=== PATIENT | male | born 1945 | race Caucasian/White ===

== ENCOUNTER 2019-06-04 08:37 | Emergency (ER) | payer OTHER, MEDICARE, BC ==
[2019-06-04 09:25] VITALS: BP 118/95; PULSE 81
[2019-06-04] MEDS ORDERED: Sodium Chloride 0.9% 10 ML Syringe FLUSH PRN (09:44)
[2019-06-04] MEDS ORDERED: Ondansetron 4 MG/2 ML SDV IVPUSH ONE (09:44)
[2019-06-04] MEDS ORDERED: HYDROmorphone 0.5 MG/0.5 ML Syringe IVPUSH ONE (09:44)
[2019-06-04] MEDS ORDERED: Sodium Chloride 0.9% 1,000 ML IV SCH (09:45)
[2019-06-04] MEDS ORDERED: Ketorolac 30 MG/ML SDV IVPUSH SCH (09:45)
--- NOTE | 2019-06-04 11:27 | EDM.PDOC ---
ED HPI GENERAL MEDICAL PROBLEM - General Chief Complaint: Gastrointestinal Problem Stated Complaint: CONSTIPATION Time Seen by Provider: 06/04/19 09:32 Source of Information: Reports: Patient, Family (spouse), RN Notes Reviewed - History of Present Illness INITIAL COMMENTS - FREE TEXT/NARRATIVE: 74 year old male comes in with abd discomfort, constipation difficulty. He had L "ankle replacement surgery" 6 days ago. He has been taking a lot of hydrocodone for pain. With that he feels that he has been much more constipated than usual. Has been taking metamucil, some other meds but has poor appetite, has not had a good BM for several days. He is passing some gas and did have a small BM earlier today, feels better now than he did before that. No vomiting. No fever or chills. Abdominal Pain Score (Numeric/FACES): 8 - Related Data Allergies Allergy/AdvReac Type Severity Reaction Status Date / Time No Known Allergies Allergy Verified 04/01/16 12:47 Home Meds: Home Meds Cyclobenzaprine [Flexeril] 10 mg PO DAILY 02/29/16 [History] Omeprazole 20 mg PO BEDTIME 02/29/16 [History] Past Medical History - Past Health History Medical/Surgical History: Denies Medical/Surgical History HEENT History: Reports: Hard of Hearing, Impaired Vision Other HEENT History: otitis externa, serous otitis medica, hearing aids, glasses Gastrointestinal History: Reports: Bowel Obstruction Musculoskeletal History: Reports: Other (See Below) Other Musculoskeletal History: Takes Flexeril at since got [place] in 2006 Neurological History: Reports: Other (See Below) Other Neuro History: Back pain after [place] - Infectious Disease History Infectious Disease History: Reports: Chicken Pox, Measles - Past Surgical History GI Surgical History: Reports: Colonoscopy, EGD, Polypectomy, Other (See Below) Other GI Surgeries/Procedures: PT had bowel resection in 2016 Neurological Surgical History: Reports: Other (See Below) Musculoskeletal Surgical History: Reports: Other (See Below) Other Musculoskeletal Surgeries/Procedures:: Ankle surgery 05/30/2019 Dermatological Surgical History: Reports: Other (See Below) Social & Family History - Family History GI: Reports: Diverticulitis, Diverticulosis Other GI Family History: both brother and nephew passed from GI issues. Musculoskeletal: Reports: Other (See Below) Other Musculoskeletal Family History: ataxia Neurological: Reports: Parkinson's Oncologic: Reports: Colon, Lung, Pancreatic - Tobacco Use Smoking Status *Q: Never Smoker Second Hand Smoke Exposure: No - Caffeine Use Caffeine Use: Reports: Coffee - Recreational Drug Use Recreational Drug Use: No ED ROS GENERAL - Review of Systems Review Of Systems: See Below Constitutional: Denies: Fever, Chills, Diaphoresis HEENT: Reports: No Symptoms Respiratory: Denies: Shortness of Breath Cardiovascular: Denies: Chest Pain GI/Abdominal: Reports: Abdominal Pain (mild intermitant achiness), Constipation , Decreased Appetite. Denies: Hematemesis, Hematochezia, Nausea, Vomiting Musculoskeletal: Reports: Joint Pain (L ankle). Denies: Back Pain Skin: Reports: No Symptoms Neurological: Reports: No Symptoms ED EXAM, GI/ABD - Physical Exam Exam: See Below General Appearance: Alert, No Apparent Distress Eyes: Bilateral: Normal Appearance Nose: Normal Inspection Throat/Mouth: Normal Inspection, Normal Oropharynx Head: Atraumatic Neck: Supple Respiratory/Chest: No Respiratory Distress, Lungs Clear, Normal Breath Sounds Cardiovascular: Regular Rate, Rhythm GI/Abdominal Exam: Soft, Non-Tender. No: Guarding, Rebound Rectal (Males) Exam: Other (very small amt of soft brown stool in rectum, no mass or unusual tenderness, heme neg. ) Back Exam: No: CVA Tenderness (L), CVA Tenderness (R) Neurological: Alert, Oriented, No Motor/Sensory Deficits Skin Exam: Warm, Dry, Normal Color Course - Vital Signs Last Recorded V/S: Last Vital Signs Temp 97.5 F 06/04/19 09:22 Pulse 81 06/04/19 09:22 Resp 18 06/04/19 09:22 BP 118/95 H 06/04/19 09:22 Pulse Ox 97 06/04/19 09:22 - Orders/Labs/Meds Labs: Laboratory Tests 06/04/19 06/04/19 Range/Units 10:20 10:20 WBC 6.50 (4.23-9.07) K/mm3 RBC 5.16 (4.63-6.08) M/mm3 Hgb 15.1 D (13.7-17.5) gm/dl Hct 44.1 (40.1-51.0) % MCV 85.5 (79.0-92.2) fl MCH 29.3 (25.7-32.2) pg MCHC 34.2 (32.2-35.5) g/dl RDW Std Deviation 39.3 (35.1-43.9) fL Plt Count 248 D (163-337) K/mm3 MPV 11.1 (9.4-12.3) fl Neut % (Auto) 83.6 H (34.0-67.9) % Lymph % (Auto) 11.2 L (21.8-53.1) % [place] % (Auto) 4.6 L (5.3-12.2) % Eos % (Auto) 0.2 L (0.8-7.0) Baso % (Auto) 0.2 (0.1-1.2) % Neut # (Auto) 5.44 H (1.78-5.38) K/mm3 Lymph # (Auto) 0.73 L (1.32-3.57) K/mm3 [place] # (Auto) 0.30 (0.30-0.82) K/mm3 Eos # (Auto) 0.01 L (0.04-0.54) K/mm3 Baso # (Auto) 0.01 (0.01-0.08) K/mm3 Sodium 139 (136-145) mEq/L Potassium 4.4 (3.5-5.1) mEq/L Chloride 105 (98-107) mEq/L Carbon Dioxide 22 (21-32) mEq/L Anion Gap 16.4 H (5-15) BUN 16 (7-18) mg/dL Creatinine 1.3 (0.7-1.3) mg/dL Est Cr Clr Drug Dosing 51.36 mL/min Estimated GFR (MDRD) 54 (>60) mL/min BUN/Creatinine Ratio 12.3 L (14-18) Glucose 107 (83-115) mg/dL Calcium 9.4 (8.5-10.1) mg/dL Total Bilirubin 0.7 (0.2-1.0) mg/dL AST 18 (15-37) U/L ALT 24 (16-63) U/L Alkaline Phosphatase 82 (46-116) U/L Total Protein 7.4 (6.4-8.2) g/dl Albumin 3.5 (3.4-5.0) g/dl Globulin 3.9 gm/dL Albumin/Globulin Ratio 0.9 L (1-2) Meds: Medications Discontinued Medications Generic Name Dose Route Start Last Admin Trade Name Freq PRN Reason Stop Dose Admin Hydromorphone HCl 0.5 mg 06/04/19 09:44 06/04/19 10:27 Dilaudid IVPUSH 06/04/19 09:45 0.5 mg ONETIME ONE Administration Sodium Chloride 1,000 mls @ 999 mls/hr 06/04/19 09:45 06/04/19 10:24 Normal Saline IV 999 mls/hr ONETIME DEBORAH Administration Ketorolac Tromethamine 30 mg 06/04/19 09:45 06/04/19 10:26 Toradol IVPUSH 30 mg ONETIME DEBORAH Administration Magnesium Citrate 296 ml 06/04/19 11:37 06/04/19 11:55 Citrate Of Magnesia PO 06/04/19 11:38 296 ml ONETIME ONE Administration Ondansetron HCl 4 mg 06/04/19 09:44 06/04/19 10:25 Zofran IVPUSH 06/04/19 09:45 4 mg ONETIME ONE Administration Sodium Chloride 10 ml 06/04/19 09:44 06/04/19 10:28 Saline Flush FLUSH 10 ml ASDIRECTED PRN Administration Keep Vein Open - Re-Assessments/Exams Free Text/Narrative Re-Assessment/Exam: 06/05/19 11:47 Abd Xray showed scattered gas, no airfluid levels or major dilitation. Departure - Departure Time of Disposition: 11:39 Disposition: Home, Self-Care 01 Condition: Fair Clinical Impression: Abdominal pain, Constipation - Discharge Information Instructions: Constipation, Adult, [id number] Referrals: Sahra Vázquez MD [Primary Care Provider] - Forms: ED Department Discharge Additional Instructions: Continue stool softener, metamucil, other GI meds as before. Drink 1/2 bottle mag citrate now when you get home. Drink the remainder if you do not have a BM within 5-6 hours. Try to cut back on your pain medication when you can to one half tablet hydrocodone every 8 hours with a 500 mg Tylenol to have less of the constipating effect of the hydrocodone. Follow-up clinic as needed. Return to ED as needed.
[2019-06-04] MEDS ORDERED: Magnesium Citrate Solution 296 ML Bottle PO ONE (11:37)
--- NOTE | 2019-06-04 11:58 | CR ---
Abdomen: Supine and upright views of the abdomen were obtained. Comparison: Prior abdominal x-ray of 09/18/15. Scattered small bowel gas is noted as well as colonic gas. Bowel gas pattern does not appear to be obstructive but could represent mild ileus or gastroenteritis. Bony structures appear within normal limits. No free air is seen. Calcifications are noted within the pelvis compatible with phleboliths. Impression: 1. Gas within nondilated small bowel and colon. As mentioned above findings could represent mild ileus or change from gastroenteritis. 2. Other findings believed to be incidental. Diagnostic code #2 This report was dictated in [place] Standard Time
== END 2019-06-04 11:55 | disposition home or self-care (01) ==
LOC: JD.ED 08:37
DX: K59.00 Constipation, unspecified (principal); R10.9 Unspecified abdominal pain
CPT/HCPCS: 36415; 74019; 80053; 85025; 96361; 96374; 96375; 99283; A9270; J1170; J1885; J2405; J7040

== ENCOUNTER 2020-12-10 12:53 | Emergency (ER) | payer OTHER, MEDICARE, BC ==
[2020-12-10] MEDS ORDERED: Sodium Chloride 0.9% 10 ML Syringe FLUSH PRN (13:14)
--- NOTE | 2020-12-10 13:52 | CT ---
CT cervical spine Technique: Multiple axial sections were obtained from above C1 inferiorly to the mid T2 level. Reconstructed coronal and sagittal images were obtained. Comparison: No prior cervical spine imaging is available. Findings: Degenerative change is noted between the dens and anterior arch of C1. Severe disc space narrowing with endplate irregularity is seen at C5-6. Slight posterior osteophytes and anterior osteophytes are seen at C5-6. Moderate to severe disc space narrowing and endplate irregularity is noted at C6-7 with minimal posterior osteophyte and anterior osteophytes. Lesser osteophytes are seen anteriorly at C4-5. Moderate narrowing is seen within both neural foramina at C5-6. Other neural foramina are felt to be fairly well patent. No bony central canal stenosis is seen. Mild degenerative change is noted within the apophyseal joints. No abnormal subluxation is seen. Visualized lung apices are clear. No fracture is appreciated. Impression: 1. Degenerative change as noted above. 2. No acute fracture or subluxation is appreciated. Diagnostic code #2
--- NOTE | 2020-12-10 13:56 | CT ---
Head CT Technique: Multiple axial sections through the brain were obtained. Intravenous contrast was not utilized. Reconstructed coronal and sagittal images were obtained. Comparison: No prior intracranial imaging is available. Findings: Bilateral subdural hematomas are seen. These hematomas appear to contain chronic and fairly acute change. Size is slightly larger on the right side than left side and causes mass-effect upon both sides of the brain. Thickness of the right subdural fluid collection is approximately 1.8 cm and thickness of the left subdural collection is approximately 9 mm. Minimal midline shift of about 1 mm is seen. No abnormal parenchymal densities are seen. No evidence of interparenchymal hemorrhage is seen. Bone window settings were reviewed which show no acute calvarial abnormality. Minimal mucosal thickening is seen within the right maxillary and ethmoid sinuses which are likely chronic. No acute calvarial abnormality is appreciated. Impression: 1. 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 Size of the subdural hematomas as noted above. These findings cause significant mass-effect upon both sides of the brain. Minimal right-sided midline shift by about 1 mm is noted. Consider neurosurgical evaluation. 2. No acute parenchymal hemorrhage is seen. Diagnostic code #5
--- NOTE | 2020-12-10 14:14 | EDM.PDOC ---
ED HPI GENERAL MEDICAL PROBLEM - General Chief Complaint: Headache Stated Complaint: SENT BY PA HEADACHE GETTING WORSE Time Seen by Provider: 12/10/20 13:02 Source of Information: Reports: Patient History Limitations: Reports: No Limitations - History of Present Illness INITIAL COMMENTS - FREE TEXT/NARRATIVE: The patient presents with a headache and upper neck pain. He fell off his deck 2 weeks ago. It is about 3 to 4 feet off the ground and he was knocked out. He has been slightly confused and dizzy since then. He has a headache and upper neck pain. He did see his chiropractor. He felt his C1 is out of place but did not do an adjustment. He went to the [facility] to be evaluated and they sent him here. He has no burred vision or double vision. He has some nausea but no vomiting. He has no chest pain, shortness of breath, abdominal pain, numbness or weakness. He has a history of heart failure and coronary artery disease. He is not on any blood thinners. He is just on some vitamins. Onset: Sudden Duration: Week(s): (2) Location: Reports: Head, Neck Quality: Reports: Sharp Severity: Moderate Improves with: Reports: None Worsens with: Reports: None Associated Symptoms: Reports: Headaches, Nausea/Vomiting. Denies: Chest Pain, Cough, Fever/Chills, Shortness of Breath Head Pain Score (Numeric/FACES): 8 - Related Data Allergies Allergy/AdvReac Type Severity Reaction Status Date / Time No Known Allergies Allergy Verified 12/10/20 13:10 Home Meds: Home Meds Calcium Carbonate [Calcium] 600 mg PO DAILY 11/27/20 [History] Magnesium 250 mg PO DAILY 11/27/20 [History] Potassium Gluconate 99 mg PO DAILY 11/27/20 [History] Past Medical History - Past Health History Medical/Surgical History: Denies Medical/Surgical History HEENT History: Reports: Hard of Hearing, Impaired Vision Other HEENT History: otitis externa, serous otitis medica, hearing aids, glasses Cardiovascular History: Reports: CAD, Heart Failure, Other (See Below) Other Cardiovascular History: Left bundle branch block Respiratory History: Reports: None Gastrointestinal History: Reports: Bowel Obstruction Genitourinary History: Reports: None MLT History: Reports: None Musculoskeletal History: Reports: Other (See Below) Other Musculoskeletal History: Takes Flexeril at since got [place] in 2006 Neurological History: Reports: Other (See Below) Other Neuro History: Back pain after [place] Psychiatric History: Reports: None Endocrine/Metabolic History: Reports: None Hematologic History: Reports: None Immunologic History: Reports: None Oncologic (Cancer) History: Reports: None Dermatologic History: Reports: None - Infectious Disease History Infectious Disease History: Reports: Chicken Pox, Measles - Past Surgical History Head Surgeries/Procedures: Reports: None HEENT Surgical History: Reports: None Cardiovascular Surgical History: Reports: None Respiratory Surgical History: Reports: None GI Surgical History: Reports: Colonoscopy, EGD, Polypectomy, Other (See Below) Other GI Surgeries/Procedures: PT had bowel resection in 2016 Male Surgical History: Reports: None Endocrine Surgical History: Reports: None Neurological Surgical History: Reports: Other (See Below) Other Neurological Surgeries/Procedures: Back pain after [facility] Musculoskeletal Surgical History: Reports: Other (See Below) Other Musculoskeletal Surgeries/Procedures:: Ankle surgery 05/30/2019 Oncologic Surgical History: Reports: None Dermatological Surgical History: Reports: Other (See Below) Social & Family History - Family History GI: Reports: Diverticulitis, Diverticulosis Other GI Family History: both brother and nephew passed from GI issues. Musculoskeletal: Reports: Other (See Below) Other Musculoskeletal Family History: ataxia Neurological: Reports: Parkinson's Oncologic: Reports: Colon, Lung, Pancreatic - Tobacco Use Tobacco Use Status *Q: Never Tobacco User Second Hand Smoke Exposure: No - Caffeine Use Caffeine Use: Reports: Coffee - Recreational Drug Use Recreational Drug Use: No ED ROS GENERAL - Review of Systems Review Of Systems: See Below Constitutional: Reports: No Symptoms HEENT: Reports: No Symptoms Respiratory: Reports: No Symptoms Cardiovascular: Reports: No Symptoms Endocrine: Reports: No Symptoms GI/Abdominal: Reports: Nausea. Denies: Abdominal Pain, Vomiting : Reports: No Symptoms Musculoskeletal: Reports: Neck Pain Neurological: Reports: Headache ED EXAM, HEAD INJURY - Physical Exam Exam: See Below Exam Limited By: No Limitations General Appearance: Alert, No Apparent Distress Head: Atraumatic, Normocephalic Ears: Normal External Exam Nose: Normal Inspection Neck: Other (Pain upon palpation to the upper neck) Respiratory: No Respiratory Distress, Lungs Clear, Normal Breath Sounds Cardiovascular: Regular Rate, Rhythm, No Edema, No Murmur GI/Abdominal Exam: Soft, Non-Tender, No Organomegaly, No Mass Back Exam: Normal Inspection Extremities: Normal Inspection #1 Interpretation EKG Date: 12/10/20 Time: 15:50 Rhythm: NSR Rate (Beats/Min): 66 [place]: LAD-Left [place] Deviation P-Wave: Present QRS: LBBB ST-T: Normal QT: Normal Comparison: No Change Course - Vital Signs Last Recorded V/S: Last Vital Signs Temp 97.3 F 12/10/20 16:26 Pulse 66 12/10/20 16:26 Resp 19 12/10/20 16:26 BP 141/63 H 12/10/20 16:26 Pulse Ox 98 12/10/20 16:26 - Orders/Labs/Meds Orders: Active Orders 24 hr Category Date Time Status Peripheral IV Insertion Adult [OM.PC] Stat Oth 12/10/20 13:14 Ordered EKG 12 Lead [EK] Stat Ther 12/10/20 14:53 Ordered Labs: Laboratory Tests 12/10/20 12/10/20 12/10/20 Range/Units 13:09 13:09 13:09 WBC 7.57 (4.23-9.07) K/mm3 RBC 4.93 (4.63-6.08) M/mm3 Hgb 14.8 (13.7-17.5) gm/dl Hct 43.4 (40.1-51.0) % MCV 88.0 (79.0-92.2) fl MCH 30.0 (25.7-32.2) pg MCHC 34.1 (32.2-35.5) g/dl RDW Std Deviation 41.3 (35.1-43.9) fL Plt Count 211 (163-337) K/mm3 MPV 11.6 (9.4-12.3) fl Neut % (Auto) 81.3 H (34.0-67.9) % Lymph % (Auto) 13.9 L (21.8-53.1) % [place] % (Auto) 4.5 L (5.3-12.2) % Eos % (Auto) 0.1 L (0.8-7.0) Baso % (Auto) 0.1 (0.1-1.2) % Neut # (Auto) 6.15 H (1.78-5.38) K/mm3 Lymph # (Auto) 1.05 L (1.32-3.57) K/mm3 [place] # (Auto) 0.34 (0.30-0.82) K/mm3 Eos # (Auto) 0.01 L (0.04-0.54) K/mm3 Baso # (Auto) 0.01 (0.01-0.08) K/mm3 PT 10.8 (9.7-12.0) SECONDS INR 1.01 APTT 25.1 (21.7-31.4) SECONDS Sodium (136-145) mEq/L Potassium (3.5-5.1) mEq/L Chloride (98-107) mEq/L Carbon Dioxide (21-32) mEq/L Anion Gap (5-15) BUN (7-18) mg/dL Creatinine (0.7-1.3) mg/dL Est Cr Clr Drug Dosing mL/min Estimated GFR (MDRD) (>60) mL/min BUN/Creatinine Ratio (14-18) Glucose (70-99) mg/dL Calcium (8.5-10.1) mg/dL Total Bilirubin (0.2-1.0) mg/dL AST (15-37) U/L ALT (16-63) U/L Alkaline Phosphatase (46-116) U/L Troponin I < 0.017 (0.00-0.056) ng/mL Total Protein (6.4-8.2) g/dl Albumin (3.4-5.0) g/dl Globulin gm/dL Albumin/Globulin Ratio (1-2) SARS-CoV-2 RNA (RAJ) (NEGATIVE) 12/10/20 12/10/20 Range/Units 13:14 15:57 WBC (4.23-9.07) K/mm3 RBC (4.63-6.08) M/mm3 Hgb (13.7-17.5) gm/dl Hct (40.1-51.0) % MCV (79.0-92.2) fl MCH (25.7-32.2) pg MCHC (32.2-35.5) g/dl RDW Std Deviation (35.1-43.9) fL Plt Count (163-337) K/mm3 MPV (9.4-12.3) fl Neut % (Auto) (34.0-67.9) % Lymph % (Auto) (21.8-53.1) % [place] % (Auto) (5.3-12.2) % Eos % (Auto) (0.8-7.0) Baso % (Auto) (0.1-1.2) % Neut # (Auto) (1.78-5.38) K/mm3 Lymph # (Auto) (1.32-3.57) K/mm3 [place] # (Auto) (0.30-0.82) K/mm3 Eos # (Auto) (0.04-0.54) K/mm3 Baso # (Auto) (0.01-0.08) K/mm3 PT (9.7-12.0) SECONDS INR APTT (21.7-31.4) SECONDS Sodium 142 (136-145) mEq/L Potassium 3.8 (3.5-5.1) mEq/L Chloride 105 (98-107) mEq/L Carbon Dioxide 24 (21-32) mEq/L Anion Gap 16.8 H (5-15) BUN 20 H (7-18) mg/dL Creatinine 1.5 H (0.7-1.3) mg/dL Est Cr Clr Drug Dosing 43.86 mL/min Estimated GFR (MDRD) 46 (>60) mL/min BUN/Creatinine Ratio 13.3 L (14-18) Glucose 150 H (70-99) mg/dL Calcium 9.0 (8.5-10.1) mg/dL Total Bilirubin 0.7 (0.2-1.0) mg/dL AST 13 L (15-37) U/L ALT 21 (16-63) U/L Alkaline Phosphatase 78 (46-116) U/L Troponin I (0.00-0.056) ng/mL Total Protein 7.3 (6.4-8.2) g/dl Albumin 3.9 (3.4-5.0) g/dl Globulin 3.4 gm/dL Albumin/Globulin Ratio 1.2 (1-2) SARS-CoV-2 RNA (RAJ) Negative (NEGATIVE) Meds: Medications Discontinued Medications Generic Name Dose Route Start Last Admin Trade Name Freq PRN Reason Stop Dose Admin Sodium Chloride 10 ml 12/10/20 13:14 12/10/20 13:54 Sodium Chloride 0.9% 10 Ml Syringe FLUSH 10 ml ASDIRECTED PRN Administration Keep Vein Open - Re-Assessments/Exams Free Text/Narrative Re-Assessment/Exam: 12/10/20 14:25 I ordered an IV saline lock, labs, CT of his head and cervical spine. 12/10/20 14:26 His CBC looks good. His creatinine is elevated at 1.5. His glucose is 150. The CT of his cervical spine shows degenerative change. No acute fracture or subluxation is appreciated. The CT of his head shows bilateral subdural hematomas. These appear chronic and acute. Size of the subdural hematomas as noted above. These findings cause significant mass effect upon both sides of the brain. Minimal right sided midline shift by about 1mm is noted. Consider neurosurgical evaluation. No acute parenchymal hemorrhage is seen. 12/10/20 15:46 I called [facility] in [place] and talked with Dr Beasley. He does recommend he patient have surgery. This has been going on for about 2 weeks. He doesnot need to be admitted tonight. He would like the patient to come to his office in the morning at 8:30am [place] time. He will then do the surgery at around noon. He wanted me to do a preop. I ordered a CXR and it looked good. His EKG shows a NSR with no acute changes and old LBBB. The patient had surgery before and had no problems with anaesthesia. He has no chest pain here. I will do a COVID 19 swab. 12/10/20 16:13 12/10/20 18:26 The troponin is negative and the COVID 19 is negative. Departure - Departure Time of Disposition: 16:05 Disposition: Home, Self-Care 01 Condition: Good Clinical Impression: Subdural hematoma Fall Qualifiers: Encounter type: initial encounter Qualified Code(s): W19.XXXA - Unspecified fall, initial encounter - Discharge Information *PRESCRIPTION DRUG MONITORING PROGRAM REVIEWED*: Not Applicable *COPY OF PRESCRIPTION DRUG MONITORING REPORT IN PATIENT LANI: Not Applicable Instructions: Subdural Hematoma Referrals: Sahra Vázquez MD [Primary Care Provider] - Marcin Villela MD [Ordering Only Provider] - 1 Day Forms: ED Department Discharge Additional Instructions: Follow up with Dr Villela at 8:30 am [place] time tomorrow. 7:30am our time. Please return if you are worse. Do not eat or drink after midnight. Sepsis Event Note (ED) - Evaluation Sepsis Screening Result: No Definite Risk - Focused Exam Vital Signs: Vital Signs Temp Pulse Resp BP Pulse Ox 12/10/20 16:26 97.3 F 66 19 141/63 H 98 12/10/20 13:01 97.2 F 79 14 135/79 99 - My Orders Last 24 Hours: My Active Orders 12/10/20 13:14 Peripheral IV Insertion Adult [OM.PC] Stat 12/10/20 14:53 EKG 12 Lead [EK] Stat - Assessment/Plan Last 24 Hours: My Active Orders 12/10/20 13:14 Peripheral IV Insertion Adult [OM.PC] Stat 12/10/20 14:53 EKG 12 Lead [EK] Stat
--- NOTE | 2020-12-10 15:37 | CR ---
Chest: Portable view of the chest was obtained. Comparison: Prior chest x-ray of 07/31/19. Heart size and mediastinum are within normal limits for portable technique. Lungs are clear with no acute parenchymal change. Bony structures show nothing acute. Impression: 1. Nothing acute is seen on portable chest x-ray. Diagnostic code #1
[2020-12-10 16:27] VITALS: BP 141/63; PULSE 66
== END 2020-12-10 16:30 | disposition home or self-care (01) ==
LOC: JD.ED 12:53
DX: S06.5X0A Traumatic subdural hemorrhage without loss of consciousness, initial encounter (principal); I25.10 Atherosclerotic heart disease of native coronary artery without angina pectoris; Z20.822 Contact with and (suspected) exposure to COVID-19; W18.39XA Other fall on same level, initial encounter
CPT/HCPCS: 36415; 70450; 70450-26; 71045; 71045-26; 72125; 72125-26; 80053; 84484; 85025; 85610; 85730; 93005; 99284; 99284-25; U0002

== ENCOUNTER 2020-12-18 10:12 | Observation (INO) | payer OTHER, MEDICARE, BC ==
[2020-12-18] MEDS ORDERED: Sodium Chloride 0.9% 10 ML Syringe FLUSH PRN (11:13)
[2020-12-18] MEDS ORDERED: Sodium Chloride 0.9% 1,000 ML IV ONE (11:17)
[2020-12-18] MEDS ORDERED: Ondansetron 4 MG/2 ML SDV IVPUSH ONE (11:17)
--- NOTE | 2020-12-18 11:30 | EDM.PDOC ---
ED HPI GENERAL MEDICAL PROBLEM - General Chief Complaint: Gastrointestinal Problem Stated Complaint: POST SURGICAL NAUSEA Time Seen by Provider: 12/18/20 11:07 Source of Information: Reports: Patient, RN Notes Reviewed History Limitations: Reports: No Limitations - History of Present Illness INITIAL COMMENTS - FREE TEXT/NARRATIVE: Patient is a 75-year-old male who presents to the ER for some postsurgical issues. He was seen here on December 10, and was found to have subdural hematomas from subsequent falls off of a deck a few weeks ago. He did see Dr. Villela and did have cranial surgery for this. He states that he is having sharp shooting back pain, so much that it makes him want to fall down. He is complaining of nausea due to the sharp shooting back pain, and when he dry heaves, this makes the pressure in his head worse, and has a subsequent headache. Notes he has had no actual vomiting, but he is not really been eating or drinking much. He is also feeling slightly dizzy but is having no other blurred vision or double vision, or any other neurological symptoms. He is having no cough or shortness of breath, or any sort of dizziness. He did have a elevated temperature at the time of triage of 99.7 F, but his significant other notes that he has not had a fever or elevated temperature at home that she is aware of. Back Pain Score (Numeric/FACES): 8 - Related Data Allergies Allergy/AdvReac Type Severity Reaction Status Date / Time No Known Allergies Allergy Verified 12/18/20 10:28 Home Meds: Home Meds Calcium Carbonate [Calcium] 600 mg PO DAILY 11/27/20 [History] Magnesium 250 mg PO DAILY 11/27/20 [History] Potassium Gluconate 99 mg PO DAILY 11/27/20 [History] Cefdinir [Omnicef] 300 mg PO BID 7 Days #10 cap 12/18/20 [Rx] Hydrocodone/Acetaminophen [Hydrocodone-Acetamin 5-325 mg] 1 tab PO Q6H PRN #12 tablet 12/18/20 [Rx] Ondansetron [Zofran ODT] 4 mg PO Q8H PRN #15 tab.dis 12/18/20 [Rx] amLODIPine [Norvasc] 5 mg PO DAILY #7 tab 12/18/20 [Rx] Past Medical History HEENT History: Reports: Hard of Hearing, Impaired Vision Other HEENT History: otitis externa, serous otitis medica, hearing aids, glasses Cardiovascular History: Reports: CAD, Heart Failure, Other (See Below) Other Cardiovascular History: Left bundle branch block Gastrointestinal History: Reports: Bowel Obstruction Musculoskeletal History: Reports: Other (See Below) Other Musculoskeletal History: Takes Flexeril at HS since got [place] in 2006 Neurological History: Reports: Other (See Below) Other Neuro History: Back pain after [place]; subdural hematoma with evacuation 12/11/20 - Infectious Disease History Infectious Disease History: Reports: Chicken Pox, Measles - Past Surgical History GI Surgical History: Reports: Colonoscopy, EGD, Polypectomy, Other (See Below) Other GI Surgeries/Procedures: PT had bowel resection in 2016 Neurological Surgical History: Reports: Other (See Below) Other Neurological Surgeries/Procedures: subdural hematoma evacuation 12/11/20 Musculoskeletal Surgical History: Reports: Other (See Below) Other Musculoskeletal Surgeries/Procedures:: L Ankle surgery 05/30/2019 Social & Family History - Family History GI: Reports: Diverticulitis, Diverticulosis Other GI Family History: both brother and nephew passed from GI issues. Musculoskeletal: Reports: Other (See Below) Other Musculoskeletal Family History: ataxia Neurological: Reports: Parkinson's Oncologic: Reports: Colon, Lung, Pancreatic - Tobacco Use Tobacco Use Status *Q: Never Tobacco User Second Hand Smoke Exposure: No - Caffeine Use Caffeine Use: Reports: Coffee - Recreational Drug Use Recreational Drug Use: No ED ROS GENERAL - Review of Systems Review Of Systems: Comprehensive ROS is negative, except as noted in HPI. ED EXAM, GENERAL - Physical Exam Exam: See Below Exam Limited By: No Limitations General Appearance: Alert, WD/WN, No Apparent Distress Eye Exam: Bilateral Eye: EOMI, Normal Inspection, PERRL Ears: Normal External Exam Head: Normocephalic, Other (multiple pattie in place from recent cranial surgery, none appear to be weeping or erythematous) Respiratory/Chest: No Respiratory Distress, Lungs Clear, Normal Breath Sounds, No Accessory Muscle Use, Chest Non-Tender Cardiovascular: Normal Peripheral Pulses, Regular Rate, Rhythm, No Edema GI/Abdominal: Normal Bowel Sounds, Soft, Non-Tender, No Distention, No Mass Extremities: Normal Inspection, Normal Capillary Refill Neurological: Alert, Oriented, Normal Cognition, No Motor/Sensory Deficits Psychiatric: Normal Affect, Normal Mood Skin Exam: Warm, Dry, Intact, Normal Color, No Rash, Other (multiple pattie on scalp from recent cranial surgery; all appear to be healing appropriately) Course - Vital Signs Last Recorded V/S: Last Vital Signs Temp 99.7 F 12/18/20 10:27 Pulse 109 H 12/18/20 10:27 Resp 22 H 12/18/20 10:27 BP 171/104 H 12/18/20 10:27 Pulse Ox 97 12/18/20 10:27 - Orders/Labs/Meds Orders: Active Orders 24 hr Category Date Time Status Peripheral IV Care [RC] . DIRECTED Care 12/18/20 11:14 Active CULTURE BLOOD [BC] Stat Lab 12/18/20 11:58 Received CULTURE BLOOD [BC] Stat Lab 12/18/20 12:05 Received Sodium Chloride 0.9% [Saline Flush] Med 12/18/20 11:13 Active 10 ml FLUSH ASDIRECTED PRN Blood Culture x2 Reflex Set [OM.PC] Stat Oth 12/18/20 11:14 Ordered Peripheral IV Insertion Adult [OM.PC] Routine Oth 12/18/20 11:13 Ordered Medication Orders Sodium Chloride (Sodium Chloride 0.9% 10 Ml Syringe) 10 ml FLUSH ASDIRECTED PRN PRN Reason: Keep Vein Open Last Admin: 12/18/20 11:31 Dose: 10 ml Documented by: CELE Labs: Laboratory Tests 12/18/20 12/18/20 Range/Units 11:58 11:58 WBC 10.51 H (4.23-9.07) K/mm3 RBC 4.52 L (4.63-6.08) M/mm3 Hgb 13.6 L (13.7-17.5) gm/dl Hct 39.6 L (40.1-51.0) % MCV 87.6 (79.0-92.2) fl MCH 30.1 (25.7-32.2) pg MCHC 34.3 (32.2-35.5) g/dl RDW Std Deviation 40.3 (35.1-43.9) fL Plt Count 191 (163-337) K/mm3 MPV 11.3 (9.4-12.3) fl Neutrophils % (Manual) 78 H (40-60) % Band Neutrophils % 0 (0-10) % Lymphocytes % (Manual) 17 L (20-40) % Atypical Lymphs % 0 % Monocytes % (Manual) 5 (2-10) % Eosinophils % (Manual) 0 L (0.8-7.0) % Basophils % (Manual) 0 L (0.2-1.2) Platelet Estimate Adequate Plt Morphology Comment See note RBC Morph Comment Normal Sodium 138 (136-145) mEq/L Potassium 4.1 (3.5-5.1) mEq/L Chloride 101 (98-107) mEq/L Carbon Dioxide 23 (21-32) mEq/L Anion Gap 18.1 H (5-15) BUN 15 (7-18) mg/dL Creatinine 1.4 H (0.7-1.3) mg/dL Est Cr Clr Drug Dosing 46.99 mL/min Estimated GFR (MDRD) 50 (>60) mL/min BUN/Creatinine Ratio 10.7 L (14-18) Glucose 110 H (70-99) mg/dL Calcium 8.6 (8.5-10.1) mg/dL Magnesium 1.9 (1.8-2.4) mg/dL Total Bilirubin 1.0 (0.2-1.0) mg/dL AST 13 L (15-37) U/L ALT 17 (16-63) U/L Alkaline Phosphatase 78 (46-116) U/L C-Reactive Protein 3.4 H* (<1.0) mg/dL Total Protein 7.2 (6.4-8.2) g/dl Albumin 3.6 (3.4-5.0) g/dl Globulin 3.6 gm/dL Albumin/Globulin Ratio 1.0 (1-2) Meds: Medications Generic Name Dose Route Start Last Admin Trade Name Freq PRN Reason Stop Dose Admin Sodium Chloride 10 ml 12/18/20 11:13 12/18/20 11:31 Sodium Chloride 0.9% 10 Ml Syringe FLUSH 10 ml ASDIRECTED PRN Administration Keep Vein Open Discontinued Medications Generic Name Dose Route Start Last Admin Trade Name Freq PRN Reason Stop Dose Admin Hydralazine HCl 10 mg 12/18/20 12:19 12/18/20 12:24 Hydralazine 20 Mg/Ml Sdv IVPUSH 12/18/20 12:20 10 mg ONETIME ONE Administration Hydromorphone HCl 0.5 mg 12/18/20 12:04 12/18/20 12:15 Hydromorphone 0.5 Mg/0.5 Ml Syringe IVPUSH 12/18/20 12:05 0.5 mg ONETIME ONE Administration Sodium Chloride 1,000 mls @ 999 mls/hr 12/18/20 11:17 12/18/20 11:29 Normal Saline IV 12/18/20 12:17 999 mls/hr ONETIME ONE Administration Ondansetron HCl 4 mg 12/18/20 11:17 12/18/20 11:29 Ondansetron 4 Mg/2 Ml Sdv IVPUSH 12/18/20 11:18 4 mg ONETIME ONE Administration - Re-Assessments/Exams Free Text/Narrative Re-Assessment/Exam: 12/18/20 11:26 Patient presents to the ER for postop complications. We will go ahead and do another CT scan of his head to make sure there are no worsening abnormalities appreciated. We will get basic labs as well, as well as give some fluids and nausea meds for initial management. 12/18/20 12:[address] has resulted, the previous fluid collections located on both sides of the brain have been evacuated from the prior study, skin pattie are present as well as bilateral craniotomy defects. He does have widened CSF spaces seen anteriorly on both sides of the brain, but this is not to be unexpected otherwise no acute intracranial abnormalities appreciated. I have also ordered 0.5mg IV Dilaudid for pain management. 12/18/20 13:15 Labs have resulted, patient's white count is mildly elevated at 10.5 with 78% neutrophils and 0 bands, CMP is impressive for an anion gap elevated at 18.1, creatinine 1.4 and a GFR 50, which seems to be baseline for the gentleman. CRP is elevated at 3.4. Likely that these are postop changes. I have placed a call into Dr. Villela at [facility] in [place] to go over the results. The patient's daughter in the room is concerned about his back pain that they cannot get a hold of. Dr. Villela did not have any major concerns about the back pain or laboratory evaluation evaluated at today's visit, along with a head CT results. He would like the patient to be treated symptomatically and have him follow-up with his clinic on Monday for further evaluation. I will go over these results with the patient's family member. 12/18/20 13:25 Upon re check of the patient's temperature it was elevated at 100.4 F. We will go ahead and do 2 g Rocephin for initial management; concern is for his resultant fever and recent post op status- I will discuss the case with our h ospitalist. Will order lactic acid, chest x-ray and urinalysis and repeat COVID screen d/t expectant hospitalization. 12/18/20 13:55 Our hospitalist was over to talk with me regarding a possible observation admission, he is concerned due to patient's resultant fever, tachycardia with his pulse being 109, respiratory rate of 22 breaths/min at triage, his blood pressure being steadily in the 170s to 180s systolically that he might be septic. Pt has already received 1 bag of Normal Saline for fluids; I am hesitant to give more IV fluids at this time d/t recent cranial surgery. Will discuss with hospitalist fluids again. Departure - Departure Time of Disposition: 13:33 Disposition: Refer to Observation Condition: Good Clinical Impression: History of cranial surgery Fever Qualifiers: Fever type: post-procedural Qualified Code(s): R50.82 - Postprocedural fever - Discharge Information *PRESCRIPTION DRUG MONITORING PROGRAM REVIEWED*: Yes *COPY OF PRESCRIPTION DRUG MONITORING REPORT IN PATIENT LANI: No Referrals: Sahra Vázquez MD [Primary Care Provider] - Forms: ED Department Discharge Additional Instructions: You were evaluated in the ER today for your multiple symptoms. Head CT was performed at today's visit, and does demonstrate normal postoperative changes for your condition. Laboratory evaluation demonstrated a mildly elevated white count, some slight dehydration. Blood cultures were taken at today's visit, and these do take a few days to result. You will be called with any concerns. You also had a fever while being in the ER, you were given 2 g IV Rocephin for management, and have been started on oral antibiotics to help prevent further infection due to recent surgery. Your case was discussed with your neurosurgeon, Dr. Villela, and he had no worries regarding the laboratory evaluations and the CT findings. He would however like you to follow-up in his clinic on Monday, you will need to go to his clinic by 10 AM on Monday morning that is central time so 9 AM Mountain time for further examination and to make sure that everything your symptoms are improving. He did state that if you are feeling better, by Monday you do not necessarily need to do the follow-up appointment, but if you are not feeling better at all, then to please keep this appointment and show up as scheduled You have been given a prescription for a few different medications one will be for amlodipine, this is a blood pressure medication this is low-dose and you should take 1 tablet daily until gone. You were given a prescription for Zofran, you will need to take 1 tab dissolvable under your tongue every 8 hours as needed for ongoing nausea. You were given a prescription for Omnicef, dosing will be 1 tablet 2 times a day until gone, you can start this tomorrow morning. You were given a prescription for a strong pain medication, hydrocodone/acetaminophen 5/325 mg, please take 1 tab every 6 hours as needed for pain not relieved by Tylenol or ibuprofen alone. Please note this medicati on does contain Tylenol in it, so do not take more than 4000 mg in a 24-hour time span. These medications can be addictive, so please take as few as possible to achieve adequate pain control. These meds can also be quite constipating, recommend that you increase your oral fluid intake and take a stool softener like MiraLAX while taking these medications. Do not drive while taking this medication. Recommend you stick to more of a clear liquid diet over the next few days, advance to a bland diet as tolerated, fluids like Gatorade/Powerade, and protein shakes would be good to use in your diet until you gain an appetite. Again if your symptoms seem to worsen in any way, or you are getting worsening fever/chills, please return to the ER for further medical management. Sepsis Event Note (ED) - Evaluation Sepsis Screening Result: No Definite Risk - Focused Exam Vital Signs: Vital Signs Temp Pulse Resp BP Pulse Ox 12/18/20 10:27 99.7 F 109 H 22 H 171/104 H 97 - My Orders Last 24 Hours: My Active Orders 12/18/20 11:13 Sodium Chloride 0.9% [Saline Flush] 10 ml FLUSH ASDIRECTED PRN Peripheral IV Insertion Adult [OM.PC] Routine 12/18/20 11:14 Peripheral IV Care [RC] . DIRECTED Blood Culture x2 Reflex Set [OM.PC] Stat 12/18/20 11:58 CULTURE BLOOD [BC] Stat 12/18/20 12:05 CULTURE BLOOD [BC] Stat - Assessment/Plan Last 24 Hours: My Active Orders 12/18/20 11:13 Sodium Chloride 0.9% [Saline Flush] 10 ml FLUSH ASDIRECTED PRN Peripheral IV Insertion Adult [OM.PC] Routine 12/18/20 11:14 Peripheral IV Care [RC] . DIRECTED Blood Culture x2 Reflex Set [OM.PC] Stat 12/18/20 11:58 CULTURE BLOOD [BC] Stat 12/18/20 12:05 CULTURE BLOOD [BC] Stat
--- NOTE | 2020-12-18 11:50 | CT ---
Head CT Technique: Multiple axial sections through the brain were obtained. Intravenous contrast was not utilized. Reconstructed coronal and sagittal images were obtained. Comparison: Prior head CT study of 12/10/20. Findings: Increased CSF space is noted overlying both frontal regions. Previous subdural fluid collections noted on prior study have been evacuated. Minimal air is seen intracranially presumably from prior surgery. Skin pattie are present on both sides of the scalp. Prior calvarial defects are seen. There is no evidence of intracranial hemorrhage. No midline shift or mass-effect is seen. Minimal vascular calcification is noted within the carotid siphon. Visualized mastoid sinuses and paranasal sinuses show nothing acute. Impression: 1. Previous fluid collections located on both sides of the brain have been evacuated from prior study. Skin pattie are present as well as bilateral craniotomy defects. 2. Widened CSF spaces are seen anteriorly on both sides of the brain which is not unexpected. 3. No acute intracranial abnormality is appreciated. Diagnostic code #2
[2020-12-18] MEDS ORDERED: HYDROmorphone 0.5 MG/0.5 ML Syringe IVPUSH ONE (12:04)
[2020-12-18] MEDS ORDERED: hydrALAZINE 20 MG/ML SDV IVPUSH ONE (12:19)
[2020-12-18] MEDS ORDERED: cefTRIAXone 2 GM in Sodium Chloride 0.9% 100 ML IV ONE (13:41)
[2020-12-18] MEDS ORDERED: Acetaminophen 325 MG Tab PO ONE (14:04)
--- NOTE | 2020-12-18 14:22 | CR ---
Chest: 2 views of the chest were obtained. Comparison: Prior chest x-ray of 12/10/20. Heart size is normal. Slight tortuosity of the thoracic aorta is seen. Lungs are clear with no acute parenchymal change. No acute osseous abnormality is appreciated. Impression: 1. Nothing acute is appreciated on 2 view chest x-ray. Diagnostic code #1
[2020-12-18 14:58] LABS: CORONAVIRUS COVID-19 NAA NEGATIVE (NEGATIVE)
--- NOTE | 2020-12-18 15:04 | PCM.HP.2 ---
<Chester Isaacs - Last Filed: 12/18/20 16:53> H&P History of Present Illness - General Date of Service: 12/18/20 Source of Information: Patient, Old Records, Provider, RN, RN Notes Reviewed History Limitations: Reports: No Limitations - History of Present Illness Initial Comments - Free Text/Narative: This is a 75-year-old male who presents to ED with nausea and back pain on 12/18/2020. He was seen in our ED on 12/10/2020 with a headache which has been present after a fall 2 weeks prior. At that time he was noted to have bilateral subdural hematomas causing significant mass-effect and midline shift. He was sent to [place] and did see Dr. Villela who performed a subdural hematoma evacuation on 12/11/2020. He reports he been feeling pretty good and starting yesterday he began to have sharp shooting lower back pain and dry heaves. Reports when he has dry heaves episodes his pain gets very severe he does report a headache. Has had minimal oral intake and has not actually vomited. He reports dizziness but no other neurological symptoms. Denies cough, shortness of breath, chest pain, or fevers but did report chills. In the ED triage she was noted to have a temperature of 99.7. On recheck this was noted to be 100.4. Pulse was 109. Respirations were 22. Blood pressure was elevated at 171/104. Pulse ox was 97%. Labs were obtained showing a very mild leukocytosis at 10.51. Hemoglobin was 13.6. Platelets 191,000. Neutrophils are elevated 78%. There is no bandemia. Sodium is 138. Potassium 4.1. Chloride 101. Carbon dioxide 23. Anion gap is elevated 18.1. BUN is 15, creatinine 1.4, GFR is 50. Glucose is 110. Magnesium 1.9. Total bilirubin 0.1. AST 13, ALT 17, alkaline phosphatase 78. CRP is 3.4. Albumin is 3.6. Influenza a and B are both negative. SARS Covid 2 RNA is negative. Blood cultures were obtained and are pending. UA is slightly cloudy with 1+ protein, 2+ ketones, trace intact occult blood, moderate amorphous sediment, and moderate urine bacteria. Head CT is obtained interpreted by Dr. Alcala, radiologist, as " 1. Previous fluid collections located in both sides of the brain have been evacuated from prior study. Skin pattie are present as well as bilateral craniotomy defects. 2. Widened CSF spaces are seen anterior on both sides of the brain which is not unexpected. 3. No acute intracranial abnormalities appreciated." Two-view chest x-ray is obtained and shows nothing acute. He is given 975 mg of Tylenol and Dilaudid for pain and fever. He is also given 4 mg Zofran for nausea and a 1 L fluid bolus. Given the very mild leukocytosis and minimal fever he started on [address] Villela was contacted by ED provider to review CT scan and he has no acute concerns. Request patient may follow-up with him next week if needed. He carries a history of CAD, heart failure, LBBB, prior bowel obstruction, West Nile virus, subdural hematoma with evacuation on 12/2020, bowel resection in 2015. Is a full code. [facility] His subsequently admitted to the medical floor observation status with telemetry for further monitoring of his symptoms and treatment of his back pain. Back Pain Score (Numeric/FACES): 8 - Related Data Allergies/Adverse Reactions: Allergies Allergy/AdvReac Type Severity Reaction Status Date / Time No Known Allergies Allergy Verified 12/18/20 16:41 Home Medications: Home Meds Calcium Carbonate [Calcium] 600 mg PO DAILY 11/27/20 [History] Magnesium 250 mg PO DAILY 11/27/20 [History] Potassium Gluconate 99 mg PO DAILY 11/27/20 [History] Past Medical History - Past Health History Medical/Surgical History: Denies Medical/Surgical History HEENT History: Reports: Hard of Hearing, Impaired Vision Other HEENT History: otitis externa, serous otitis medica, hearing aids, glasses Cardiovascular History: Reports: CAD, Heart Failure, Other (See Below) Other Cardiovascular History: Left bundle branch block Respiratory History: Reports: None Gastrointestinal History: Reports: Bowel Obstruction Genitourinary History: Reports: None Musculoskeletal History: Reports: Other (See Below) Other Musculoskeletal History: Takes Flexeril at since got West Nile in 2006 Neurological History: Reports: Other (See Below) Other Neuro History: Back pain after West Nile; subdural hematoma with evacuation 12/11/20 Psychiatric History: Reports: None Endocrine/Metabolic History: Reports: None Hematologic History: Reports: None Immunologic History: Reports: None Oncologic (Cancer) History: Reports: None Dermatologic History: Reports: None - Infectious Disease History Infectious Disease History: Reports: Chicken Pox, Measles - Past Surgical History GI Surgical History: Reports: Colonoscopy, EGD, Polypectomy, Other (See Below) Other GI Surgeries/Procedures: PT had bowel resection in 2016 Neurological Surgical History: Reports: Other (See Below) Other Neurological Surgeries/Procedures: subdural hematoma evacuation 12/11/20 Musculoskeletal Surgical History: Reports: Other (See Below) Other Musculoskeletal Surgeries/Procedures:: L Ankle surgery 05/30/2019 Social & Family History - Family History GI: Reports: Diverticulitis, Diverticulosis Other GI Family History: both brother and nephew passed from GI issues. Musculoskeletal: Reports: Other (See Below) Other Musculoskeletal Family History: ataxia Neurological: Reports: Parkinson's Oncologic: Reports: Colon, Lung, Pancreatic - Tobacco Use Tobacco Use Status *Q: Never Tobacco User Second Hand Smoke Exposure: No - Caffeine Use Caffeine Use: Reports: Coffee - Recreational Drug Use Recreational Drug Use: No H&P Review of Systems - Review of Systems: Review Of Systems: See Below General: Reports: No Symptoms, Chills. Denies: Fever, Malaise, Weakness, Fatigue HEENT: Reports: No Symptoms, Other (Patient denies any pain or draining from prior incision sites on his head.). Denies: Headaches, Sore Throat Pulmonary: Reports: Cough, Sputum (in AM ). Denies: Shortness of Breath, Wheezing, Pleuritic Chest Pain Cardiovascular: Reports: No Symptoms. Denies: Chest Pain, Palpitations, Orthopnea, Edema Gastrointestinal: Reports: Nausea. Denies: Abdominal Pain, Constipation, Diarrhea, Vomiting Genitourinary: Reports: No Symptoms. Denies: Dysuria, Frequency, Burning, Pain, Urgency, Incontinence Musculoskeletal: Reports: Back Pain (lumbar) Skin: Reports: No Symptoms. Denies: Cyanosis Psychiatric: Reports: No Symptoms. Denies: Confusion Neurological: Reports: No Symptoms, Difficulty Walking. Denies: Confusion, Dizziness, Headache, Numbness, Pre-Existing Deficit, Seizure, Syncope, Tingling, Tremors, Trouble Speaking, Weakness, Change in Speech, Gait Disturbance Hematologic/Lymphatic: Reports: No Symptoms Immunologic: Reports: No Symptoms Exam - Exam Exam: See Below - Vital Signs Vital Signs: Last Vital Signs Temp 100.0 F 12/18/20 14:53 Pulse 85 12/18/20 14:53 Resp 20 12/18/20 14:53 BP 176/95 H 12/18/20 14:53 Pulse Ox 95 12/18/20 14:53 Weight: 200 lb - Exam Quality Assessment: DVT Prophylaxis. No: Supplemental Oxygen, Urinary Catheter General: Alert, Oriented, Cooperative. No: Mild Distress HEENT: Conjunctiva Clear, EACs Clear, EOMI, Nares Patent, Other (Bilateral posterior lateral approximately 3-4 centimeter prior incision sites with pattie in place. There is also an approximately 1 cm incision site midline with pattie in place. No redness or drainage. No signs of inflammation.). No: Mucosa Moist & [place] (mildly dry ) Neck: Supple, Trachea Midline, 2 Lungs: Clear to Auscultation, Normal Respiratory Effort Cardiovascular: Regular Rate, Regular Rhythm GI/Abdominal Exam: Normal Bowel Sounds, Soft, Non-Tender, No Distention, No Abnormal Bruit (Male) Exam: Deferred Rectal (Males) Exam: Deferred Back Exam: Normal Inspection, Full Range of Motion. No: Muscle Spasm, Paraspinal Tenderness, Vertebral Tenderness Extremities: Normal Inspection, Normal Range of Motion, Non-Tender, No Pedal Edema, Normal Capillary Refill Peripheral Pulses: 2+: Radial (L), Radial (R), Dorsalis Pedis (L), Dorsalis Pedis (R) Skin: Warm, Dry, Intact Neurological: Cranial Nerves Intact (Grossly ) Neuro Extensive - Mental Status: Alert, Oriented x3, Normal Mood/Affect - Patient Data Lab Results Last 24 hrs: Laboratory Results - last 24 hr 12/18/20 12/18/20 12/18/20 Range/Units 11:58 11:58 11:58 WBC 10.51 H (4.23-9.07) K/mm3 RBC 4.52 L (4.63-6.08) M/mm3 Hgb 13.6 L (13.7-17.5) gm/dl Hct 39.6 L (40.1-51.0) % MCV 87.6 (79.0-92.2) fl MCH 30.1 (25.7-32.2) pg MCHC 34.3 (32.2-35.5) g/dl RDW Std Deviation 40.3 (35.1-43.9) fL Plt Count 191 (163-337) K/mm3 MPV 11.3 (9.4-12.3) fl Neutrophils % (Manual) 78 H (40-60) % Band Neutrophils % 0 (0-10) % Lymphocytes % (Manual) 17 L (20-40) % Atypical Lymphs % 0 % Monocytes % (Manual) 5 (2-10) % Eosinophils % (Manual) 0 L (0.8-7.0) % Basophils % (Manual) 0 L (0.2-1.2) Platelet Estimate Adequate Plt Morphology Comment See note RBC Morph Comment Normal Sodium 138 (136-145) mEq/L Potassium 4.1 (3.5-5.1) mEq/L Chloride 101 (98-107) mEq/L Carbon Dioxide 23 (21-32) mEq/L Anion Gap 18.1 H (5-15) BUN 15 (7-18) mg/dL Creatinine 1.4 H (0.7-1.3) mg/dL Est Cr Clr Drug Dosing 46.99 mL/min Estimated GFR (MDRD) 50 (>60) mL/min BUN/Creatinine Ratio 10.7 L (14-18) Glucose 110 H (70-99) mg/dL Lactic Acid 1.3 (0.4-2.0) mmol/L Calcium 8.6 (8.5-10.1) mg/dL Magnesium 1.9 (1.8-2.4) mg/dL Total Bilirubin 1.0 (0.2-1.0) mg/dL AST 13 L (15-37) U/L ALT 17 (16-63) U/L Alkaline Phosphatase 78 (46-116) U/L C-Reactive Protein 3.4 H* (<1.0) mg/dL Total Protein 7.2 (6.4-8.2) g/dl Albumin 3.6 (3.4-5.0) g/dl Globulin 3.6 gm/dL Albumin/Globulin Ratio 1.0 (1-2) Urine Color (Yellow) Urine Appearance (Clear) Urine pH (5.0-8.0) Ur Specific [place] (1.005-1.030) Urine Protein (Negative) Urine Glucose (UA) (Negative) Urine Ketones (Negative) Urine Occult Blood (Negative) Urine Nitrite (Negative) Urine Bilirubin (Negative) Urine Urobilinogen (0.2-1.0) Ur Leukocyte Esterase (Negative) Urine RBC (0-5) /hpf Urine WBC (0-5) /hpf Ur Epithelial Cells (0-5) /hpf Amorphous Sediment (NOT SEEN) /hpf Urine Bacteria (FEW) /hpf Urine Mucus (FEW) /hpf 12/18/20 Range/Units 13:53 WBC (4.23-9.07) K/mm3 RBC (4.63-6.08) M/mm3 Hgb (13.7-17.5) gm/dl Hct (40.1-51.0) % MCV (79.0-92.2) fl MCH (25.7-32.2) pg MCHC (32.2-35.5) g/dl RDW Std Deviation (35.1-43.9) fL Plt Count (163-337) K/mm3 MPV (9.4-12.3) fl Neutrophils % (Manual) (40-60) % Band Neutrophils % (0-10) % Lymphocytes % (Manual) (20-40) % Atypical Lymphs % % Monocytes % (Manual) (2-10) % Eosinophils % (Manual) (0.8-7.0) % Basophils % (Manual) (0.2-1.2) Platelet Estimate Plt Morphology Comment RBC Morph Comment Sodium (136-145) mEq/L Potassium (3.5-5.1) mEq/L Chloride (98-107) mEq/L Carbon Dioxide (21-32) mEq/L Anion Gap (5-15) BUN (7-18) mg/dL Creatinine (0.7-1.3) mg/dL Est Cr Clr Drug Dosing mL/min Estimated GFR (MDRD) (>60) mL/min BUN/Creatinine Ratio (14-18) Glucose (70-99) mg/dL Lactic Acid (0.4-2.0) mmol/L Calcium (8.5-10.1) mg/dL Magnesium (1.8-2.4) mg/dL Total Bilirubin (0.2-1.0) mg/dL AST (15-37) U/L ALT (16-63) U/L Alkaline Phosphatase (46-116) U/L C-Reactive Protein (<1.0) mg/dL Total Protein (6.4-8.2) g/dl Albumin (3.4-5.0) g/dl Globulin gm/dL Albumin/Globulin Ratio (1-2) Urine Color Yellow (Yellow) Urine Appearance Slt cloudy H (Clear) Urine pH 7.0 (5.0-8.0) Ur Specific [place] 1.025 (1.005-1.030) Urine Protein 1+ H (Negative) Urine Glucose (UA) Negative (Negative) Urine Ketones 2+ H (Negative) Urine Occult Blood Trace-intact H (Negative) Urine Nitrite Negative (Negative) Urine Bilirubin Negative (Negative) Urine Urobilinogen 0.2 (0.2-1.0) Ur Leukocyte Esterase Negative (Negative) Urine RBC 0-5 (0-5) /hpf Urine WBC Not seen (0-5) /hpf Ur Epithelial Cells Not seen (0-5) /hpf Amorphous Sediment Moderate H (NOT SEEN) /hpf Urine Bacteria Moderate H (FEW) /hpf Urine Mucus Few (FEW) /hpf Result Diagrams: 12/18/20 11:58 12/18/20 11:58 Sepsis Event Note - Evaluation Sepsis Screening Result: No Definite Risk - Focused Exam Vital Signs: Vital Signs Temp Temp Pulse Resp BP Pulse Ox 12/18/20 14:53 100.0 F 85 20 176/95 H 95 12/18/20 14:08 100.0 F 12/18/20 10:27 99.7 F 109 H 22 H 171/104 H 97 - Problem List (1) Nausea SNOMED Code(s): 695988003 ICD Code: R11.0 - NAUSEA Status: Acute Priority: High Current Visit: Yes (2) Hypertension SNOMED Code(s): 30109114 ICD Code: I10 - ESSENTIAL (PRIMARY) HYPERTENSION Status: Acute Priority: High Current Visit: Yes Qualifiers: Hypertension type: unspecified Qualified Code(s): I10 - Essential (primary) hypertension (3) Leukocytosis SNOMED Code(s): 794298191, 204847875 ICD Code: D72.829 - ELEVATED WHITE BLOOD CELL COUNT, UNSPECIFIED Status: Acute Priority: High Current Visit: Yes Qualifiers: Leukocytosis type: unspecified Qualified Code(s): D72.829 - Elevated white blood cell count, unspecified (4) Fever SNOMED Code(s): 272104666 ICD Code: R50.9 - FEVER, UNSPECIFIED Status: Acute Priority: High Current Visit: Yes Qualifiers: Fever type: unspecified Qualified Code(s): R50.9 - Fever, unspecified (5) History of cranial surgery SNOMED Code(s): 447130926 ICD Code: Z98.890 - OTHER SPECIFIED POSTPROCEDURAL STATES Status: Chronic Current Visit: Yes (6) Back pain SNOMED Code(s): 533844097 ICD Code: M54.9 - DORSALGIA, UNSPECIFIED Status: Acute Priority: High Current Visit: Yes Qualifiers: Back pain location: low back pain Chronicity: acute Back pain laterality: midline Sciatica presence: unspecified whether sciatica present Qualified Code(s): M54.5 - Low back pain (7) Tachycardia SNOMED Code(s): 5673486 ICD Code: R00.0 - TACHYCARDIA, UNSPECIFIED Status: Acute Priority: High Current Visit: Yes (8) History of traumatic subdural hematoma SNOMED Code(s): 522210378, 060840039 ICD Code: Z87.828 - PERSONAL HISTORY OF OTH (HEALED) PHYSICAL INJURY AND TRAUMA Status: Chronic Priority: High Current Visit: Yes (9) History of West Nile virus (WNV) infection SNOMED Code(s): 776180773 ICD Code: Z86.19 - PERSONAL HISTORY OF OTHER INFECTIOUS AND PARASITIC DISEASES Status: Chronic Priority: Low Current Visit: No (10) History of bowel resection SNOMED Code(s): 790510813 ICD Code: Z90.49 - ACQUIRED ABSENCE OF OTHER SPECIFIED PARTS OF DIGESTIVE TRACT Status: Chronic Priority: Low Current Visit: No (11) CAD (coronary artery disease) SNOMED Code(s): 21316845 ICD Code: I25.10 - ATHSCL HEART DISEASE OF [place] CORONARY ARTERY W/O ANG PCTRS Status: Chronic Priority: Low Current Visit: No Qualifiers: Coronary Disease-Associated Artery/Lesion type: unspecified vessel or lesion type [place] vs. transplanted heart: [place] heart Associated angina: unspecified whether angina present Qualified Code(s): I25.10 - Atherosclerotic heart disease of [place] coronary artery without angina pectoris (12) CHF (congestive heart failure) SNOMED Code(s): 57728659 ICD Code: I50.9 - HEART FAILURE, UNSPECIFIED Status: Chronic Priority: Lo w Current Visit: No Qualifiers: Heart failure type: unspecified Heart failure chronicity: unspecified Qualified Code(s): I50.9 - Heart failure, unspecified (13) LBBB (left bundle branch block) SNOMED Code(s): 12519628 ICD Code: I44.7 - LEFT BUNDLE-BRANCH BLOCK, UNSPECIFIED Status: Chronic Priority: Low Current Visit: No Problem List Initiated/Reviewed/Updated: Yes Orders Last 24hrs: Active Orders 24 hr Category Date Time Status Peripheral IV Care [RC] . DIRECTED Care 12/18/20 11:14 Active COVID-19/FLU A+B [MOLEC] Stat Lab 12/18/20 14:11 Received CULTURE BLOOD [BC] Stat Lab 12/18/20 11:58 Received CULTURE BLOOD [BC] Stat Lab 12/18/20 12:05 Received Sodium Chloride 0.9% [Saline Flush] Med 12/18/20 11:13 Active 10 ml FLUSH ASDIRECTED PRN Blood Culture x2 Reflex Set [OM.PC] Stat Oth 12/18/20 11:14 Ordered Peripheral IV Insertion Adult [OM.PC] Routine Oth 12/18/20 11:13 Ordered Medication Orders Sodium Chloride (Sodium Chloride 0.9% 10 Ml Syringe) 10 ml FLUSH ASDIRECTED PRN PRN Reason: Keep Vein Open Last Admin: 12/18/20 11:31 Dose: 10 ml Documented by: CELE Assessment/Plan Comment:: Assessment - day of admission 12/18/2020 * 75-year-old male presents to ED with severe back pain and nausea * History of CAD, heart failure, LBBB, prior bowel obstruction, West Nile virus, subdural hematoma with evacuation on 12/2020, bowel resection in 2016. * Seen in our ED on 12/10/2020 with a headache which has been present after a fall 2 weeks prior. * At that time he was noted to have bilateral subdural hematomas causing significant mass-effect and midline shift. * Sent to [place] and did see Dr. Villela who performed a subdural hematoma evacuation on 12/11/2020. * Has had minimal oral intake and has not actually vomited. * In the ED triage she was noted to have a temperature of 99.7. On recheck this was noted to be 100.4. * Blood pressure was elevated at 171/104. * Labs obtained: * WBC 10.51. * Hemoglobin was 13.6. * Platelets 191,000. * Neutrophils are elevated at 78%. There is no bandemia. * Sodium is 138. * Potassium 4.1. * Chloride 101. * Carbon dioxide 23. * Anion gap is elevated 18.1. * BUN is 15, creatinine 1.4, GFR is 50. * Glucose is 110. * Magnesium 1.9. * Total bilirubin 0.1. * AST 13, ALT 17, alkaline phosphatase 78. * CRP is 3.4. * Albumin is 3.6. * Influenza a and B are both negative. * SARS Covid 2 RNA is negative. * Blood cultures were obtained and are pending. * UA is slightly cloudy with 1+ protein, 2+ ketones, trace intact occult blood, moderate amorphous sediment, and moderate urine bacteria. * Head CT is obtained interpreted by Dr. Alcala, radiologist, as * 1. Previous fluid collections located in both sides of the brain have been evacuated from prior study. Skin pattie are present as well as bilateral craniotomy defects. * 2. Widened CSF spaces are seen anterior on both sides of the brain which is not unexpected. * 3. No acute intracranial abnormalities appreciated." * Two-view chest x-ray is obtained and shows nothing acute. * Dr. Eagle, neurosurgeon, contacted by ED provider. He has no concerns over lab results or imaging and states patient may follow-up with him next week. * He is given 975 mg of Tylenol and Dilaudid for pain and fever. He is also given 4 mg Zofran for nausea and a 1 L fluid bolus. Given the very mild leukocytosis and minimal fever he started on 2 g Rocephin. * Is subsequently admitted to the medical floor observation status with telemetry for further monitoring of his symptoms and treatment of his back pain. * Sepsis criteria: No suspected bacterial infection, WBC minimal (<12); Tmax <100.9 (100.4); RR >20 (22); HR >90 (109), No acute end organ dysfunction. * Does not meet criteria PLAN: Nausea Hypertension Leukocytosis Fever History of cranial surgery Back pain Tachycardia * PRN antiemetics * PRN Pain medications * PT/OT * PRN hydralazine for blood pressure greater than 150 systolic * Suspect hypertension is secondary to back pain. Will monitor vital signs. * Contact attending hospitalist if fever is noted tonight * IS * Will hold off continue antibiotic for now as there is no source of infection, pending blood cultures * Blood cultures pending * Urine cultures pending * Telemetry * IV fluids as ordered History of traumatic subdural hematoma * Follow-up with Dr. Villela, neurosurgeon next week if needed, or as scheduled History of West Nile virus (WNV) infection History of bowel resection * No acute concerns CAD (coronary artery disease) CHF (congestive heart failure) LBBB (left bundle branch block) * 2 g sodium restriction * Not on any home medications * Monitor CKD vs NICO * No formal diagnosis but patient does appear to have baseline GFR in the upper 50s on multiple prior visits. * IV fluids as ordered * Monitor labs. Code status: Full code PCP: Dr. Vázquez with [facility] DVT prophylaxis: SCDs Disposition: Patient admitted observation status with telemetry for management of back pain, nausea, and low-grade acute febrile illness. Likely length of stay 1 to 2 days. - Mortality Measure Prognosis:: Good <Joseph Bryan Jr - Last Filed: 12/18/20 17:16> H&P History of Present Illness - General Admit Problem/Dx: Admission Diagnosis/Problem Admission Diagnosis/Problem Fever of unknown origin Exam - Vital Signs Vital Signs: Last Vital Signs Temp 98.4 F 12/18/20 16:35 Pulse 74 12/18/20 16:35 Resp 20 12/18/20 16:57 BP 107/74 12/18/20 16:35 Pulse Ox 94 L 12/18/20 16:35 - Patient Data Lab Results Last 24 hrs: Laboratory Results - last 24 hr 12/18/20 12/18/20 12/18/20 Range/Units 11:58 11:58 11:58 WBC 10.51 H (4.23-9.07) K/mm3 RBC 4.52 L (4.63-6.08) M/mm3 Hgb 13.6 L (13.7-17.5) gm/dl Hct 39.6 L (40.1-51.0) % MCV 87.6 (79.0-92.2) fl MCH 30.1 (25.7-32.2) pg MCHC 34.3 (32.2-35.5) g/dl RDW Std Deviation 40.3 (35.1-43.9) fL Plt Count 191 (163-337) K/mm3 MPV 11.3 (9.4-12.3) fl Neutrophils % (Manual) 78 H (40-60) % Band Neutrophils % 0 (0-10) % Lymphocytes % (Manual) 17 L (20-40) % Atypical Lymphs % 0 % Monocytes % (Manual) 5 (2-10) % Eosinophils % (Manual) 0 L (0.8-7.0) % Basophils % (Manual) 0 L (0.2-1.2) Platelet Estimate Adequate Plt Morphology Comment See note RBC Morph Comment Normal Sodium 138 (136-145) mEq/L Potassium 4.1 (3.5-5.1) mEq/L Chloride 101 (98-107) mEq/L Carbon Dioxide 23 (21-32) mEq/L Anion Gap 18.1 H (5-15) BUN 15 (7-18) mg/dL Creatinine 1.4 H (0.7-1.3) mg/dL Est Cr Clr Drug Dosing 46.99 mL/min Estimated GFR (MDRD) 50 (>60) mL/min BUN/Creatinine Ratio 10.7 L (14-18) Glucose 110 H (70-99) mg/dL Lactic Acid 1.3 (0.4-2.0) mmol/L Calcium 8.6 (8.5-10.1) mg/dL Magnesium 1.9 (1.8-2.4) mg/dL Total Bilirubin 1.0 (0.2-1.0) mg/dL AST 13 L (15-37) U/L ALT 17 (16-63) U/L Alkaline Phosphatase 78 (46-116) U/L C-Reactive Protein 3.4 H* (<1.0) mg/dL Total Protein 7.2 (6.4-8.2) g/dl Albumin 3.6 (3.4-5.0) g/dl Globulin 3.6 gm/dL Albumin/Globulin Ratio 1.0 (1-2) Urine Color (Yellow) Urine Appearance (Clear) Urine pH (5.0-8.0) Ur Specific [place] (1.005-1.030) Urine Protein (Negative) Urine Glucose (UA) (Negative) Urine Ketones (Negative) Urine Occult Blood (Negative) Urine Nitrite (Negative) Urine Bilirubin (Negative) Urine Urobilinogen (0.2-1.0) Ur Leukocyte Esterase (Negative) Urine RBC (0-5) /hpf Urine WBC (0-5) /hpf Ur Epithelial Cells (0-5) /hpf Amorphous Sediment (NOT SEEN) /hpf Urine Bacteria (FEW) /hpf Urine Mucus (FEW) /hpf Influenza Type A RNA (NEGATIVE) Influenza Type B RNA (NEGATIVE) SARS-CoV-2 RNA (RAJ) (NEGATIVE) 12/18/20 12/18/20 Range/Units 13:53 14:11 WBC (4.23-9.07) K/mm3 RBC (4.63-6.08) M/mm3 Hgb (13.7-17.5) gm/dl Hct (40.1-51.0) % MCV (79.0-92.2) fl MCH (25.7-32.2) pg MCHC (32.2-35.5) g/dl RDW Std Deviation (35.1-43.9) fL Plt Count (163-337) K/mm3 MPV (9.4-12.3) fl Neutrophils % (Manual) (40-60) % Band Neutrophils % (0-10) % Lymphocytes % (Manual) (20-40) % Atypical Lymphs % % Monocytes % (Manual) (2-10) % Eosinophils % (Manual) (0.8-7.0) % Basophils % (Manual) (0.2-1.2) Platelet Estimate Plt Morphology Comment RBC Morph Comment Sodium (136-145) mEq/L Potassium (3.5-5.1) mEq/L Chloride (98-107) mEq/L Carbon Dioxide (21-32) mEq/L Anion Gap (5-15) BUN (7-18) mg/dL Creatinine (0.7-1.3) mg/dL Est Cr Clr Drug Dosing mL/min Estimated GFR (MDRD) (>60) mL/min BUN/Creatinine Ratio (14-18) Glucose (70-99) mg/dL Lactic Acid (0.4-2.0) mmol/L Calcium (8.5-10.1) mg/dL Magnesium (1.8-2.4) mg/dL Total Bilirubin (0.2-1.0) mg/dL AST (15-37) U/L ALT (16-63) U/L Alkaline Phosphatase (46-116) U/L C-Reactive Protein (<1.0) mg/dL Total Protein (6.4-8.2) g/dl Albumin (3.4-5.0) g/dl Globulin gm/dL Albumin/Globulin Ratio (1-2) Urine Color Yellow (Yellow) Urine Appearance Slt cloudy H (Clear) Urine pH 7.0 (5.0-8.0) Ur Specific [place] 1.025 (1.005-1.030) Urine Protein 1+ H (Negative) Urine Glucose (UA) Negative (Negative) Urine Ketones 2+ H (Negative) Urine Occult Blood Trace-intact H (Negative) Urine Nitrite Negative (Negative) Urine Bilirubin Negative (Negative) Urine Urobilinogen 0.2 (0.2-1.0) Ur Leukocyte Esterase Negative (Negative) Urine RBC 0-5 (0-5) /hpf Urine WBC Not seen (0-5) /hpf Ur Epithelial Cells Not seen (0-5) /hpf Amorphous Sediment Moderate H (NOT SEEN) /hpf Urine Bacteria Moderate H (FEW) /hpf Urine Mucus Few (FEW) /hpf Influenza Type A RNA Negative (NEGATIVE) Influenza Type B RNA Negative (NEGATIVE) SARS-CoV-2 RNA (RAJ) Negative (NEGATIVE) Result Diagrams: 12/18/20 11:58 12/18/20 11:58 Sepsis Event Note - Focused Exam Vital Signs: Vital Signs Temp Temp Pulse Pulse Resp BP BP 12/18/20 16:57 20 12/18/20 16:35 98.4 F 74 107/74 12/18/20 14:53 100.0 F 85 20 176/95 H 12/18/20 14:08 100.0 F 12/18/20 10:27 99.7 F 109 H 22 H 171/104 H Pulse Ox 12/18/20 16:57 12/18/20 16:35 94 L 12/18/20 14:53 95 12/18/20 14:08 12/18/20 10:27 97 Orders Last 24hrs: Active Orders 24 hr Category Date Time Status Admission Status [Patient Status] [ADT] Routine ADT 12/18/20 15:42 Active Antiembolic Devices [RC] PER UNIT ROUTINE Care 12/18/20 17:09 Active Cardiac Monitoring [RC] CONTINUOUS Care 12/18/20 16:21 Active Intake and Output [RC] 04,16 Care 12/18/20 16:21 Active Oxygen Therapy [RC] ASDIRECTED Care 12/18/20 16:21 Active Peripheral IV Care [RC] . DIRECTED Care 12/18/20 11:14 Active Pulse Oximetry [RC] PRN Care 12/18/20 16:21 Active RT Incentive Spirometry [RC] ASDIRECTED Care 12/18/20 16:21 Active Up With Assistance [RC] QSHIFT Care 12/18/20 16:21 Active Vital Signs [RC] Q6H Care 12/18/20 16:21 Active OT Evaluation and Treatment [CONS] Routine Cons 12/18/20 16:23 Active PT Evaluation and Treatment [CONS] Routine Cons 12/18/20 16:23 Active 2 Gram Sodium Diet [DIET] Diet 12/18/20 Dinner Active CBC WITH AUTO DIFF [HEME] AM Lab 12/19/20 05:11 Ordered CBC WITH AUTO DIFF [HEME] AM Lab 12/20/20 05:11 Ordered CBC WITH AUTO DIFF [HEME] AM Lab 12/21/20 05:11 Ordered CBC WITH AUTO DIFF [HEME] AM Lab 12/22/20 05:11 Ordered CMP [COMPREHENSIVE METABOLIC PN,CMP] [CHEM] AM Lab 12/19/20 05:11 Ordered CMP [COMPREHENSIVE METABOLIC PN,CMP] [CHEM] AM Lab 12/20/20 05:11 Ordered CMP [COMPREHENSIVE METABOLIC PN,CMP] [CHEM] AM Lab 12/21/20 05:11 Ordered CRP [C-REACTIVE PROTEIN] [CHEM] AM Lab 12/19/20 05:11 Ordered CRP [C-REACTIVE PROTEIN] [CHEM] AM Lab 12/20/20 05:11 Ordered CRP [C-REACTIVE PROTEIN] [CHEM] AM Lab 12/21/20 05:11 Ordered CRP [C-REACTIVE PROTEIN] [CHEM] AM Lab 12/22/20 05:11 Ordered CULTURE BLOOD [BC] Stat Lab 12/18/20 11:58 Received CULTURE BLOOD [BC] Stat Lab 12/18/20 12:05 Received CULTURE URINE [MREF] Stat Lab 12/18/20 13:55 Received MAGNESIUM [CHEM] AM Lab 12/19/20 05:11 Ordered MAGNESIUM [CHEM] AM Lab 12/20/20 05:11 Ordered MAGNESIUM [CHEM] AM Lab 12/21/20 05:11 Ordered MAGNESIUM [CHEM] AM Lab 12/22/20 05:11 Ordered PROCALCITONIN [REF] Stat Lab 12/18/20 17:00 Received Acetaminophen [TylenoL] Med 12/18/20 16:21 Active 650 mg PO Q4H PRN Acetaminophen/HYDROcodone [[place] 325-5 MG] Med 12/18/20 16:21 Active 1 tab PO Q4H PRN Docusate Sodium [Colace] Med 12/18/20 16:21 Active 100 mg PO Q12H PRN Lactated Ringers [Ringers, Lactated] 1,000 ml Med 12/18/20 16:30 Active IV ASDIRECTED Morphine Med 12/18/20 16:21 Active 2 mg IVPUSH Q2H PRN Ondansetron [Zofran] Med 12/18/20 16:21 Active 4 mg IV Q6H PRN Sodium Chloride 0.9% [Saline Flush] Med 12/18/20 11:13 Active 10 ml FLUSH ASDIRECTED PRN hydrALAZINE [Apresoline] Med 12/18/20 16:30 Active 10 mg IVPUSH Q6H PRN Blood Culture x2 Reflex Set [OM.PC] Stat Oth 12/18/20 11:14 Ordered Peripheral IV Insertion Adult [OM.PC] Routine Oth 12/18/20 11:13 Ordered SCD [Sequential Compression Device] [OM.PC] Routine Oth 12/18/20 17:09 Ordered Resuscitation Status Routine Resus Stat 12/18/20 16:21 Ordered Medication Orders Acetaminophen (Acetaminophen 325 Mg Tab) 650 mg PO Q4H PRN PRN Reason: Pain (Mild 1-3)/fever Hydrocodone Bitart/Acetaminophen (Acetaminophen/Hydrocodone 325-5 Mg Tab) 1 tab PO Q4H PRN PRN Reason: Pain (moderate 4-6) Docusate Sodium (Docusate Sodium 100 Mg Cap) 100 mg PO Q12H PRN PRN Reason: Constipation Hydralazine HCl (Hydralazine 20 Mg/Ml Sdv) 10 mg IVPUSH Q6H PRN PRN Reason: Hypertension Lactated Ringer's (Ringers, Lactated) 1,000 mls @ 75 mls/hr IV ASDIRECTED DEBORAH Stop: 12/19/20 05:49 Morphine Sulfate (Morphine 2 Mg/Ml Syringe) 2 mg IVPUSH Q2H PRN PRN Reason: Pain (severe 7-10) Stop: 12/19/20 16:22 Ondansetron HCl (Ondansetron 4 Mg/2 Ml Sdv) 4 mg IV Q6H PRN PRN Reason: Nausea/Vomiting Sodium Chloride (Sodium Chloride 0.9% 10 Ml Syringe) 10 ml FLUSH ASDIRECTED PRN PRN Reason: Keep Vein Open Last Admin: 12/18/20 11:31 Dose: 10 ml Documented by: CELE Assessment/Plan Comment:: Case discussed and preceptored in full. Agree with evaluation, assessment and plan. -Robin Grey Jr., DO
[2020-12-18] MEDS ORDERED: Docusate Sodium 100 MG Cap PO PRN (16:21)
[2020-12-18] MEDS ORDERED: Morphine 2 MG/ML SYRINGE IVPUSH PRN (16:21)
[2020-12-18] MEDS ORDERED: Ondansetron 4 MG/2 ML SDV IV PRN (16:21)
[2020-12-18] MEDS ORDERED: Acetaminophen 325 MG Tab PO PRN (16:21)
[2020-12-18] MEDS ORDERED: hydrALAZINE 20 MG/ML SDV IVPUSH PRN (16:30)
[2020-12-18] MEDS: Lactated Ringers 1,000 ML IV SCH (17:41)
[2020-12-18] MEDS ORDERED: amLODIPine 5 MG Tab PO SCH (21:00)
[2020-12-18] MEDS: Acetaminophen/HYDROcodone 325-5 MG Tab PO PRN (21:32)
[2020-12-19] MEDS: Lactated Ringers 1,000 ML IV SCH (07:07)
[2020-12-19 08:30] VITALS: BP 115/65; PULSE 80
[2020-12-19] MEDS: Acetaminophen/HYDROcodone 325-5 MG Tab PO PRN (08:55)
[2020-12-19] MEDS ORDERED: Magnesium Oxide 400 MG Tab PO SCH (09:00)
[2020-12-19] MEDS ORDERED: Calcium Carbonate 600 MG Tab PO SCH (09:00)
[2020-12-19] MEDS ORDERED: Non-Formulary Medication 1 Each (Potassium Gluconate [Potassium Gluconate] 99 MG Tablet) PO SCH (09:00)
--- NOTE | 2020-12-19 09:48 | PCM.DCSUM1 ---
Discharge Summary - Hospital Course Free Text/Narrative:: Mitchell Ortiz is a 75 y/o M with a recent fall and sustaining bilateral subdural hematomas status post evacuation in [place] on 12/11/2020. He was admitted to [facility] in [facility] on 12/18/2020 under observation status for fever, leukocytosis and nausea. His nausea was thought to be postoperative from the recent subdural hematoma evacuations. He was given a dose of IV Rocephin in the ER and monitored overnight. His admission temperature of 100.4 Fahrenheit resolved the following day. His infectious work-up which included a Covid screen as well as other respiratory viruses was negative. A UA done in during this stay was also negative. He was discharged home the following day in a stable condition. He was advised to follow-up with Dr. Villela neurosurgeon on 01/01/2021. He is to also follow-up with primary care provider within a week. Activity: As tolerated Diet: Regular Discharge condition: patient was stable Physical exam Subjective: Patient awake and alert no distress. He complains of occasional nausea which Zofran seems to help Objective: Awake and alert in no acute distress. Wants to go home [place] Vitals: Stable CVS: S1S2 is appreciated. regular rate and rhythm. no murmurs, rubs or gallops Lungs: Clear without rales or wheezes Abdomen: Soft, obese, nontender, bowel sounds are appreciated Remedies: No clubbing cyanosis edema. Pedal pulses 2+ Neuro: Strength is equal and symmetrical. Diagnosis: Stroke: No - Discharge Data Discharge Date: 12/19/20 Discharge Disposition: Home, Self-Care 01 Condition: Fair - Referral to Home Health Primary Care Physician: Sarha Vázquez MD - Patient Summary/Data Consults: Consultations 12/18/20 16:23 OT Evaluation and Treatment [CONS] Routine PT Evaluation and Treatment [CONS] Routine - Patient Instructions Diet: Regular Diet as Tolerated Activity: As Tolerated Driving: May Drive Today Showering/Bathing: May Shower Wound/Incision Care: Keep Operative Site/Wound Site Clean and Dry - Discharge Plan *PRESCRIPTION DRUG MONITORING PROGRAM REVIEWED*: Yes *COPY OF PRESCRIPTION DRUG MONITORING REPORT IN PATIENT LANI: No Prescriptions/Med Rec: Ondansetron [Zofran ODT] 4 mg PO Q6H PRN 12 Days #30 tab.dis PRN Reason: Nausea/Vomiting Home Medications: Home Meds Calcium Carbonate [Calcium] 600 mg PO DAILY 11/27/20 [History] Magnesium 250 mg PO DAILY 11/27/20 [History] Potassium Gluconate 99 mg PO DAILY 11/27/20 [History] Ondansetron [Zofran ODT] 4 mg PO Q6H PRN 12 Days #30 tab.dis 12/19/20 [Rx] Forms: ED Department Discharge Referrals: Sahra Vázquez MD [Primary Care Provider] - - Discharge Summary/Plan Comment DC Time >30 min.: Yes - Patient Data Vitals - Most Recent: Last Vital Signs Temp 99.0 F 12/19/20 08:54 Pulse 80 12/19/20 02:05 Resp 15 12/19/20 02:05 BP 115/65 12/19/20 02:05 Pulse Ox 95 12/19/20 02:05 Weight - Most Recent: 203 lb 1.6 oz I&O - Last 24 hours: Intake & Output 12/18/20 12/19/20 12/19/20 22:59 06:59 14:59 Intake Total 520 1512 Output Total 750 Balance 520 762 Lab Results - Last 24 hrs: Laboratory Results - last 24 hr 12/18/20 12/18/20 12/18/20 Range/Units 11:58 11:58 11:58 WBC 10.51 H (4.23-9.07) K/mm3 RBC 4.52 L (4.63-6.08) M/mm3 Hgb 13.6 L (13.7-17.5) gm/dl Hct 39.6 L (40.1-51.0) % MCV 87.6 (79.0-92.2) fl MCH 30.1 (25.7-32.2) pg MCHC 34.3 (32.2-35.5) g/dl RDW Std Deviation 40.3 (35.1-43.9) fL Plt Count 191 (163-337) K/mm3 MPV 11.3 (9.4-12.3) fl Neut % (Auto) (34.0-67.9) % Lymph % (Auto) (21.8-53.1) % [place] % (Auto) (5.3-12.2) % Eos % (Auto) (0.8-7.0) Baso % (Auto) (0.1-1.2) % Neut # (Auto) (1.78-5.38) K/mm3 Lymph # (Auto) (1.32-3.57) K/mm3 [place] # (Auto) (0.30-0.82) K/mm3 Eos # (Auto) (0.04-0.54) K/mm3 Baso # (Auto) (0.01-0.08) K/mm3 Neutrophils % (Manual) 78 H (40-60) % Band Neutrophils % 0 (0-10) % Lymphocytes % (Manual) 17 L (20-40) % Atypical Lymphs % 0 % Monocytes % (Manual) 5 (2-10) % Eosinophils % (Manual) 0 L (0.8-7.0) % Basophils % (Manual) 0 L (0.2-1.2) Platelet Estimate Adequate Plt Morphology Comment See note RBC Morph Comment Normal Sodium 138 (136-145) mEq/L Potassium 4.1 (3.5-5.1) mEq/L Chloride 101 (98-107) mEq/L Carbon Dioxide 23 (21-32) mEq/L Anion Gap 18.1 H (5-15) BUN 15 (7-18) mg/dL Creatinine 1.4 H (0.7-1.3) mg/dL Est Cr Clr Drug Dosing 46.99 mL/min Estimated GFR (MDRD) 50 (>60) mL/min BUN/Creatinine Ratio 10.7 L (14-18) Glucose 110 H (70-99) mg/dL Lactic Acid 1.3 (0.4-2.0) mmol/L Calcium 8.6 (8.5-10.1) mg/dL Magnesium 1.9 (1.8-2.4) mg/dL Total Bilirubin 1.0 (0.2-1.0) mg/dL AST 13 L (15-37) U/L ALT 17 (16-63) U/L Alkaline Phosphatase 78 (46-116) U/L C-Reactive Protein 3.4 H* (<1.0) mg/dL Total Protein 7.2 (6.4-8.2) g/dl Albumin 3.6 (3.4-5.0) g/dl Globulin 3.6 gm/dL Albumin/Globulin Ratio 1.0 (1-2) Urine Color (Yellow) Urine Appearance (Clear) Urine pH (5.0-8.0) Ur Specific Jay (1.005-1.030) Urine Protein (Negative) Urine Glucose (UA) (Negative) Urine Ketones (Negative) Urine Occult Blood (Negative) Urine Nitrite (Negative) Urine Bilirubin (Negative) Urine Urobilinogen (0.2-1.0) Ur Leukocyte Esterase (Negative) Urine RBC (0-5) /hpf Urine WBC (0-5) /hpf Ur Epithelial Cells (0-5) /hpf Amorphous Sediment (NOT SEEN) /hpf Urine Bacteria (FEW) /hpf Urine Mucus (FEW) /hpf Influenza Type A RNA (NEGATIVE) Influenza Type B RNA (NEGATIVE) SARS-CoV-2 RNA (RAJ) (NEGATIVE) 12/18/20 12/18/20 12/19/20 Range/Units 13:53 14:11 06:10 WBC 8.80 (4.23-9.07) K/mm3 RBC 4.26 L (4.63-6.08) M/mm3 Hgb 12.6 L (13.7-17.5) gm/dl Hct 37.8 L (40.1-51.0) % MCV 88.7 (79.0-92.2) fl MCH 29.6 (25.7-32.2) pg MCHC 33.3 (32.2-35.5) g/dl RDW Std Deviation 41.3 (35.1-43.9) fL Plt Count 185 (163-337) K/mm3 MPV 11.9 (9.4-12.3) fl Neut % (Auto) 67.2 (34.0-67.9) % Lymph % (Auto) 21.8 (21.8-53.1) % [place] % (Auto) 8.6 (5.3-12.2) % Eos % (Auto) 1.9 (0.8-7.0) Baso % (Auto) 0.3 (0.1-1.2) % Neut # (Auto) 5.90 H (1.78-5.38) K/mm3 Lymph # (Auto) 1.92 (1.32-3.57) K/mm3 [place] # (Auto) 0.76 (0.30-0.82) K/mm3 Eos # (Auto) 0.17 (0.04-0.54) K/mm3 Baso # (Auto) 0.03 (0.01-0.08) K/mm3 Neutrophils % (Manual) (40-60) % Band Neutrophils % (0-10) % Lymphocytes % (Manual) (20-40) % Atypical Lymphs % % Monocytes % (Manual) (2-10) % Eosinophils % (Manual) (0.8-7.0) % Basophils % (Manual) (0.2-1.2) Platelet Estimate Plt Morphology Comment RBC Morph Comment Sodium (136-145) mEq/L Potassium (3.5-5.1) mEq/L Chloride (98-107) mEq/L Carbon Dioxide (21-32) mEq/L Anion Gap (5-15) BUN (7-18) mg/dL Creatinine (0.7-1.3) mg/dL Est Cr Clr Drug Dosing mL/min Estimated GFR (MDRD) (>60) mL/min BUN/Creatinine Ratio (14-18) Glucose (70-99) mg/dL Lactic Acid (0.4-2.0) mmol/L Calcium (8.5-10.1) mg/dL Magnesium (1.8-2.4) mg/dL Total Bilirubin (0.2-1.0) mg/dL AST (15-37) U/L ALT (16-63) U/L Alkaline Phosphatase (46-116) U/L C-Reactive Protein (<1.0) mg/dL Total Protein (6.4-8.2) g/dl Albumin (3.4-5.0) g/dl Globulin gm/dL Albumin/Globulin Ratio (1-2) Urine Color Yellow (Yellow) Urine Appearance Slt cloudy H (Clear) Urine pH 7.0 (5.0-8.0) Ur Specific Jay 1.025 (1.005-1.030) Urine Protein 1+ H (Negative) Urine Glucose (UA) Negative (Negative) Urine Ketones 2+ H (Negative) Urine Occult Blood Trace-intact H (Negative) Urine Nitrite Negative (Negative) Urine Bilirubin Negative (Negative) Urine Urobilinogen 0.2 (0.2-1.0) Ur Leukocyte Esterase Negative (Negative) Urine RBC 0-5 (0-5) /hpf Urine WBC Not seen (0-5) /hpf Ur Epithelial Cells Not seen (0-5) /hpf Amorphous Sediment Moderate H (NOT SEEN) /hpf Urine Bacteria Moderate H (FEW) /hpf Urine Mucus Few (FEW) /hpf Influenza Type A RNA Negative (NEGATIVE) Influenza Type B RNA Negative (NEGATIVE) SARS-CoV-2 RNA (RAJ) Negative (NEGATIVE) 12/19/20 Range/Units 06:10 WBC (4.23-9.07) K/mm3 RBC (4.63-6.08) M/mm3 Hgb (13.7-17.5) gm/dl Hct (40.1-51.0) % MCV (79.0-92.2) fl MCH (25.7-32.2) pg MCHC (32.2-35.5) g/dl RDW Std Deviation (35.1-43.9) fL Plt Count (163-337) K/mm3 MPV (9.4-12.3) fl Neut % (Auto) (34.0-67.9) % Lymph % (Auto) (21.8-53.1) % [place] % (Auto) (5.3-12.2) % Eos % (Auto) (0.8-7.0) Baso % (Auto) (0.1-1.2) % Neut # (Auto) (1.78-5.38) K/mm3 Lymph # (Auto) (1.32-3.57) K/mm3 [place] # (Auto) (0.30-0.82) K/mm3 Eos # (Auto) (0.04-0.54) K/mm3 Baso # (Auto) (0.01-0.08) K/mm3 Neutrophils % (Manual) (40-60) % Band Neutrophils % (0-10) % Lymphocytes % (Manual) (20-40) % Atypical Lymphs % % Monocytes % (Manual) (2-10) % Eosinophils % (Manual) (0.8-7.0) % Basophils % (Manual) (0.2-1.2) Platelet Estimate Plt Morphology Comment RBC Morph Comment Sodium 136 (136-145) mEq/L Potassium 4.1 (3.5-5.1) mEq/L Chloride 103 (98-107) mEq/L Carbon Dioxide 21 (21-32) mEq/L Anion Gap 16.1 H (5-15) BUN 17 (7-18) mg/dL Creatinine 1.3 (0.7-1.3) mg/dL Est Cr Clr Drug Dosing 50.61 mL/min Estimated GFR (MDRD) 54 (>60) mL/min BUN/Creatinine Ratio 13.1 L (14-18) Glucose 102 H (70-99) mg/dL Lactic Acid (0.4-2.0) mmol/L Calcium 8.3 L (8.5-10.1) mg/dL Magnesium 1.9 (1.8-2.4) mg/dL Total Bilirubin 0.8 (0.2-1.0) mg/dL AST 12 L (15-37) U/L ALT 15 L (16-63) U/L Alkaline Phosphatase 66 (46-116) U/L C-Reactive Protein 3.6 H* (<1.0) mg/dL Total Protein 6.3 L (6.4-8.2) g/dl Albumin 3.0 L (3.4-5.0) g/dl Globulin 3.3 gm/dL Albumin/Globulin Ratio 0.9 L (1-2) Urine Color (Yellow) Urine Appearance (Clear) Urine pH (5.0-8.0) Ur Specific Jay (1.005-1.030) Urine Protein (Negative) Urine Glucose (UA) (Negative) Urine Ketones (Negative) Urine Occult Blood (Negative) Urine Nitrite (Negative) Urine Bilirubin (Negative) Urine Urobilinogen (0.2-1.0) Ur Leukocyte Esterase (Negative) Urine RBC (0-5) /hpf Urine WBC (0-5) /hpf Ur Epithelial Cells (0-5) /hpf Amorphous Sediment (NOT SEEN) /hpf Urine Bacteria (FEW) /hpf Urine Mucus (FEW) /hpf Influenza Type A RNA (NEGATIVE) Influenza Type B RNA (NEGATIVE) SARS-CoV-2 RNA (RAJ) (NEGATIVE) Med Orders - Current: Current Medications Acetaminophen (Acetaminophen 325 Mg Tab) 650 mg PO Q4H PRN PRN Reason: Pain (Mild 1-3)/fever Last Admin: 12/19/20 08:54 Dose: 650 mg Documented by: Hydrocodone Bitart/Acetaminophen (Acetaminophen/Hydrocodone 325-5 Mg Tab) 1 tab PO Q4H PRN PRN Reason: Pain (moderate 4-6) Last Admin: 12/19/20 08:55 Dose: 1 tab Documented by: Docusate Sodium (Docusate Sodium 100 Mg Cap) 100 mg PO Q12H PRN PRN Reason: Constipation Hydralazine HCl (Hydralazine 20 Mg/Ml Sdv) 10 mg IVPUSH Q6H PRN PRN Reason: Hypertension Morphine Sulfate (Morphine 2 Mg/Ml Syringe) 2 mg IVPUSH Q2H PRN PRN Reason: Pain (severe 7-10) Stop: 12/19/20 16:22 Ondansetron HCl (Ondansetron 4 Mg/2 Ml Sdv) 4 mg IV Q6H PRN PRN Reason: Nausea/Vomiting Last Admin: 12/19/20 07:20 Dose: 4 mg Documented by: Sodium Chloride (Sodium Chloride 0.9% 10 Ml Syringe) 10 ml FLUSH ASDIRECTED PRN PRN Reason: Keep Vein Open Last Admin: 12/18/20 11:31 Dose: 10 ml Documented by: Discontinued Medications Acetaminophen (Acetaminophen 325 Mg Tab) 975 mg PO NOW ONE Stop: 12/18/20 14:05 Last Admin: 12/18/20 14:08 Dose: 975 mg Documented by: Amlodipine Besylate (Amlodipine 5 Mg Tab) 5 mg PO BEDTIME DEBORAH Calcium Carbonate/Glycine (Calcium Carbonate 600 Mg Tab) 600 mg PO DAILY DEBORAH Hydralazine HCl (Hydralazine 20 Mg/Ml Sdv) 10 mg IVPUSH ONETIME ONE Stop: 12/18/20 12:20 Last Admin: 12/18/20 12:24 Dose: 10 mg Documented by: Hydromorphone HCl (Hydromorphone 0.5 Mg/0.5 Ml Syringe) 0.5 mg IVPUSH ONETIME ONE Stop: 12/18/20 12:05 Last Admin: 12/18/20 12:15 Dose: 0.5 mg Documented by: Sodium Chloride (Normal Saline) 1,000 mls @ 999 mls/hr IV ONETIME ONE Stop: 12/18/20 12:17 Last Admin: 12/18/20 11:29 Dose: 999 mls/hr Documented by: Ceftriaxone Sodium 2 gm/ (Sodium Chloride) 100 mls @ 200 mls/hr IV ONETIME ONE Stop: 12/18/20 14:10 Last Admin: 12/18/20 13:50 Dose: 200 mls/hr Documented by: Lactated Ringer's (Ringers, Lactated) 1,000 mls @ 75 mls/hr IV ASDIRECTED DEBORAH Stop: 12/19/20 05:49 Last Infusion: 12/19/20 07:01 Dose: Infused Documented by: Magnesium Oxide (Magnesium Oxide 400 Mg Tab) 400 mg PO DAILY [facility] Non-Formulary Medication (Potassium Gluconate [Potassium Gluconate]) 99 mg PO DAILY [facility] Ondansetron HCl (Ondansetron 4 Mg/2 Ml Sdv) 4 mg IVPUSH ONETIME ONE Stop: 12/18/20 11:18 Last Admin: 12/18/20 11:29 Dose: 4 mg Documented by:
== END 2020-12-19 11:47 | disposition home or self-care (01) ==
LOC: JD.ED 10:12 → JD.MS 15:42
PROVIDERS: ADMIT Hospitalist; ATTEND Hospitalist
DX: R11.0 Nausea (principal); M54.9 Dorsalgia, unspecified; I25.10 Atherosclerotic heart disease of native coronary artery without angina pectoris; I11.0 Hypertensive heart disease with heart failure; I50.9 Heart failure, unspecified; D72.829 Elevated white blood cell count, unspecified; R50.9 Fever, unspecified; R00.0 Tachycardia, unspecified; I44.7 Left bundle-branch block, unspecified; Z20.822 Contact with and (suspected) exposure to COVID-19; Z79.899 Other long term (current) drug therapy; Z98.890 Other specified postprocedural states; Z87.828 Personal history of other (healed) physical injury and trauma; Z86.19 Personal history of other infectious and parasitic diseases; Z90.49 Acquired absence of other specified parts of digestive tract
CPT/HCPCS: 0240U; 36415; 70450; 71046; 80053; 81001; 83605; 83735; 84145; 85007; 85025; 85027; 86140; 87040; 87086; 96365; 96375; 99285; A9270; J0360; J0696; J1170; J2405; J7030; J7120; 96376; 99217; 99219; G0378

== ENCOUNTER 2021-03-17 14:26 | Emergency (ER) | payer MEDICARE, BC ==
[2021-03-17 14:40] VITALS: BP 174/98; PULSE 88
--- NOTE | 2021-03-17 14:55 | EDM.PDOC ---
ED HPI GENERAL MEDICAL PROBLEM - General Chief Complaint: Neurological Problem Stated Complaint: POSS BRAIN BLEED Time Seen by Provider: 03/17/21 14:26 - History of Present Illness INITIAL COMMENTS - FREE TEXT/NARRATIVE: 76-year-old male presents the emergency room concerned he might be having another intracranial hemorrhage. A little over 2 months ago the patient had a intercranial hemorrhage spontaneous. Over time he developed some forgetfulness difficulty formulating his thoughts and some intermittent dizziness with this. He is having some intermittent dizziness at this time and just generally is not himself. He feels he might be a little weaker on the left side compared to the right. With his last bleed the patient had 2 drains placed. He has noticed some discomfort coming up from the left side of his neck radiating forward. He is not having any nausea or vomiting has a pressure sensation or discomfort in the back of his head that he rates it a 5 but also states it is pretty mild. Head Pain Score (Numeric/FACES): 5 - Related Data Allergies Allergy/AdvReac Type Severity Reaction Status Date / Time No Known Allergies Allergy Verified 12/18/20 16:41 Home Meds: Home Meds Calcium Carbonate [Calcium] 600 mg PO DAILY 11/27/20 [History] Magnesium 250 mg PO DAILY 11/27/20 [History] Potassium Gluconate 99 mg PO DAILY 11/27/20 [History] Ondansetron [Zofran ODT] 4 mg PO Q6H PRN 12 Days #30 tab.dis 12/19/20 [Rx] Past Medical History - Past Health History Medical/Surgical History: Denies Medical/Surgical History HEENT History: Reports: Hard of Hearing, Impaired Vision Other HEENT History: otitis externa, serous otitis medica, hearing aids, glasses Cardiovascular History: Reports: CAD, Other (See Below) Other Cardiovascular History: Left bundle branch block Respiratory History: Reports: None Gastrointestinal History: Reports: Bowel Obstruction Genitourinary History: Reports: None WATER SYSTEMS ENGINEER History: Reports: None Musculoskeletal History: Reports: Other (See Below) Other Musculoskeletal History: Back pain in the past. Neurological History: Reports: Other (See Below) Other Neuro History: Back pain after [place] Psychiatric History: Reports: None Endocrine/Metabolic History: Reports: None Hematologic History: Reports: None Immunologic History: Reports: None Oncologic (Cancer) History: Reports: None Dermatologic History: Reports: None - Infectious Disease History Infectious Disease History: Reports: Chicken Pox, Measles - Past Surgical History Other Neurological Surgeries/Procedures: Back pain after [place] Other Musculoskeletal Surgeries/Procedures:: Ankle surgery 05/30/2019 Social & Family History - Family History GI: Reports: Diverticulitis, Diverticulosis Other GI Family History: both brother and nephew passed from GI issues. Musculoskeletal: Reports: Other (See Below) Other Musculoskeletal Family History: ataxia Neurological: Reports: Parkinson's Oncologic: Reports: Colon, Lung, Pancreatic - Caffeine Use Caffeine Use: Reports: Coffee ED ROS GENERAL - Review of Systems Review Of Systems: See Below Constitutional: Reports: No Symptoms HEENT: Reports: No Symptoms Respiratory: Reports: No Symptoms Cardiovascular: Reports: No Symptoms GI/Abdominal: Reports: No Symptoms : Reports: No Symptoms Musculoskeletal: Reports: No Symptoms Neurological: Reports: Dizziness, Headache Psychiatric: Reports: No Symptoms ED EXAM, NEURO - Physical Exam Exam: See Below Exam Limited By: No Limitations General Appearance: Alert, No Apparent Distress Eye Exam: Bilateral Eye: EOMI, Normal Inspection, PERRL Ears: Normal External Exam, Normal Canal, Hearing Grossly Normal, Normal TMs, Other (Hearing aids had to be removed. The patient did this without any coordination problems.) Nose: Normal Inspection, Normal Mucosa, No Blood Throat/Mouth: Normal Inspection, Normal Lips, Normal Teeth, Normal Gums, Normal Oropharynx, Normal Voice, No Airway Compromise Head Exam: Atraumatic, Normocephalic Neck: Normal Inspection, Supple, Non-Tender, Full Range of Motion Respiratory/Chest: No Respiratory Distress, Lungs Clear, Normal Breath Sounds, No Accessory Muscle Use, Chest Non-Tender Cardiovascular: Regular Rate, Rhythm, No Edema, No Murmur GI/Abdominal: Normal Bowel Sounds, Soft, Non-Tender Neurological: Alert, Normal Mood/Affect, CN II-XII Intact, No Motor/Sensory Deficits, Other (I cannot appreciate any weakness on the left side. Neurologic exam otherwise normal) Back Exam: Normal Inspection. No: CVA Tenderness (L), CVA Tenderness (R) Extremities: Normal Inspection, No Pedal Edema Psychiatric: Normal Affect, Normal Mood Course - Vital Signs Last Recorded V/S: Last Vital Signs Temp 36.6 C 03/17/21 14:32 Pulse 88 03/17/21 14:32 Resp 14 03/17/21 14:32 BP 174/98 H 03/17/21 14:32 Pulse Ox 98 03/17/21 14:32 - Orders/Labs/Meds Orders: Active Orders 24 hr Category Date Time Status POC Glucose [Blood Glucose Check, Bedside] [RC] ONETIME Care 03/17/21 14:36 Active Labs: Laboratory Tests 03/17/21 03/17/21 03/17/21 Range/Units 14:34 14:35 14:35 WBC 6.95 (4.23-9.07) K/mm3 RBC 5.08 (4.63-6.08) M/mm3 Hgb 15.2 D (13.7-17.5) gm/dl Hct 45.1 (40.1-51.0) % MCV 88.8 (79.0-92.2) fl MCH 29.9 (25.7-32.2) pg MCHC 33.7 (32.2-35.5) g/dl RDW Std Deviation 41.7 (35.1-43.9) fL Plt Count 202 (163-337) K/mm3 MPV 11.3 (9.4-12.3) fl Neut % (Auto) 68.2 H (34.0-67.9) % Lymph % (Auto) 22.9 (21.8-53.1) % [place] % (Auto) 7.5 (5.3-12.2) % Eos % (Auto) 0.9 (0.8-7.0) Baso % (Auto) 0.4 (0.1-1.2) % Neut # (Auto) 4.74 (1.78-5.38) K/mm3 Lymph # (Auto) 1.59 (1.32-3.57) K/mm3 [place] # (Auto) 0.52 (0.30-0.82) K/mm3 Eos # (Auto) 0.06 (0.04-0.54) K/mm3 Baso # (Auto) 0.03 (0.01-0.08) K/mm3 PT (9.7-12.0) SECONDS INR APTT (21.7-31.4) SECONDS Sodium 141 (136-145) mEq/L Potassium 4.3 (3.5-5.1) mEq/L Chloride 105 (98-107) mEq/L Carbon Dioxide 23 (21-32) mEq/L Anion Gap 17.3 H (5-15) BUN 21 H (7-18) mg/dL Creatinine 1.4 H (0.7-1.3) mg/dL Est Cr Clr Drug Dosing TNP Estimated GFR (MDRD) 50 (>60) mL/min BUN/Creatinine Ratio 15.0 (14-18) Glucose 104 H (70-99) mg/dL POC Glucose 88 (70-99) mg/dL Calcium 8.4 L (8.5-10.1) mg/dL Total Bilirubin 0.4 (0.2-1.0) mg/dL AST 17 (15-37) U/L ALT 24 (16-63) U/L Alkaline Phosphatase 93 (46-116) U/L Troponin I (0.00-0.056) ng/mL Total Protein 7.3 (6.4-8.2) g/dl Albumin 3.8 (3.4-5.0) g/dl Globulin 3.5 gm/dL Albumin/Globulin Ratio 1.1 (1-2) 03/17/21 03/17/21 Range/Units 14:35 14:35 WBC (4.23-9.07) K/mm3 RBC (4.63-6.08) M/mm3 Hgb (13.7-17.5) gm/dl Hct (40.1-51.0) % MCV (79.0-92.2) fl MCH (25.7-32.2) pg MCHC (32.2-35.5) g/dl RDW Std Deviation (35.1-43.9) fL Plt Count (163-337) K/mm3 MPV (9.4-12.3) fl Neut % (Auto) (34.0-67.9) % Lymph % (Auto) (21.8-53.1) % [place] % (Auto) (5.3-12.2) % Eos % (Auto) (0.8-7.0) Baso % (Auto) (0.1-1.2) % Neut # (Auto) (1.78-5.38) K/mm3 Lymph # (Auto) (1.32-3.57) K/mm3 [place] # (Auto) (0.30-0.82) K/mm3 Eos # (Auto) (0.04-0.54) K/mm3 Baso # (Auto) (0.01-0.08) K/mm3 PT 10.6 (9.7-12.0) SECONDS INR 0.99 APTT 27.3 (21.7-31.4) SECONDS Sodium (136-145) mEq/L Potassium (3.5-5.1) mEq/L Chloride (98-107) mEq/L Carbon Dioxide (21-32) mEq/L Anion Gap (5-15) BUN (7-18) mg/dL Creatinine (0.7-1.3) mg/dL Est Cr Clr Drug Dosing Estimated GFR (MDRD) (>60) mL/min BUN/Creatinine Ratio (14-18) Glucose (70-99) mg/dL POC Glucose (70-99) mg/dL Calcium (8.5-10.1) mg/dL Total Bilirubin (0.2-1.0) mg/dL AST (15-37) U/L ALT (16-63) U/L Alkaline Phosphatase (46-116) U/L Troponin I < 0.017 (0.00-0.056) ng/mL Total Protein (6.4-8.2) g/dl Albumin (3.4-5.0) g/dl Globulin gm/dL Albumin/Globulin Ratio (1-2) - Re-Assessments/Exams Free Text/Narrative Re-Assessment/Exam: 03/17/21 15:[address] Nazario neurosurgeon at [facility] in [place] who will review the images as well as comparison images. Our study from today shows what looks like a small subacute subdural which was not identified on 12/18/2020. But I see no other images correlating to his bleeding event. 03/17/21 18:25 It took us quite a while attempting to get the images to [facility] and this was never quite completed. However I could get that [facility] images sent here and discussed the situation with Dr. Alcala our radiologist and he does think there is been an interval change since February 03 of this year but it is subacute. Dr. Nazario recommends the patient follow-up with his neurosurgeon at the end of this week or early this next week. 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 Follow-up with your neurosurgeon at the [facility] in [place] at the end of this week or early next week. Sepsis Event Note (ED) - Focused Exam Vital Signs: Vital Signs Temp Pulse Resp BP Pulse Ox 03/17/21 14:32 36.6 C 88 14 174/98 H 98 - My Orders Last 24 Hours: My Active Orders 03/17/21 14:36 POC Glucose [Blood Glucose Check, Bedside] [RC] ONETIME - Assessment/Plan Last 24 Hours: My Active Orders 03/17/21 14:36 POC Glucose [Blood Glucose Check, Bedside] [RC] ONETIME
--- NOTE | 2021-03-17 15:10 | CT ---
Addendum: Outside CT study of 02/03/21 is now available. Previously noted small left-sided subdural hematoma, which appears to be chronic, represents an interval change from previous exam. No other interval change is seen from the old study. --- Addendum1 above dictated on [03/17/2021 17:47] by [Christo Alcala, Joni Meyer] --- --- Addendum1 above signed on [03/17/2021 17:49] by [Christo Alcala Hilton J.] --- --- Original report below dictated on [03/17/2021 15:04] by [Christo Alcala Hilton J.] --- --- Original report below signed on [03/17/2021 15:08] by [Christo Alcala, Joni Meyer] --- Head CT Technique: Multiple axial sections through the brain were obtained. Intravenous contrast was not utilized. Reconstructed coronal and sagittal images were obtained. Comparison: Prior head CT study of 12/18/20. Findings: Small subdural hematoma is noted within the left side which involves the left frontal region and left parietal regions. This subdural hematoma has a thickness of 5 mm. There is no evidence of acute blood within this area but this is an interval change from previous study. Ventricles along with basal cisterns and sulci over the convexities are prominent. Minimal basal ganglia calcification is noted. No other abnormal parenchymal densities are seen. No evidence of intracranial hemorrhage is seen. No midline shift or mass-effect is seen. Bone window settings were reviewed. Visualized mastoid sinuses and paranasal sinuses are clear. Atherosclerotic calcification is noted within the carotid siphons. [place] holes are seen within the calvarium. No acute calvarial abnormality is appreciated. Impression: 1. Small subacute subdural hematoma which is an interval change from prior study but shows no evidence of acute hemorrhage. 2. Senescent change as noted above. 3. No acute abnormality is appreciated on noncontrast head CT study. Diagnostic code #3 --- Addendum1 signed ---
== END 2021-03-17 18:49 | disposition home or self-care (01) ==
LOC: JD.ED 14:26
DX: Z87.820 Personal history of traumatic brain injury (principal); I25.10 Atherosclerotic heart disease of native coronary artery without angina pectoris; I44.7 Left bundle-branch block, unspecified; Z79.899 Other long term (current) drug therapy; R42 Dizziness and giddiness
CPT/HCPCS: 36415; 70450; 70450-26; 80053; 82947; 84484; 85025; 85610; 85730; 93005; 99284; 99284-25

== ENCOUNTER 2021-04-22 09:24 | Emergency (ER) | payer MEDICARE, BC ==
--- NOTE | 2021-04-22 12:17 | EDM.PDOC ---
ED HPI GENERAL MEDICAL PROBLEM - General Chief Complaint: Syncope Stated Complaint: TESTS Time Seen by Provider: 04/22/21 12:17 - History of Present Illness INITIAL COMMENTS - FREE TEXT/NARRATIVE: 76-year-old male returns to emergency room with shortness of breath. Nausea and lightheadedness with change of position. Patient was recently diagnosed with Covid. And he is not doing very well with this. Not aware of any fevers or chills he has some nausea at times and feels like he is dehydrated. When he changes position he has some lightheadedness. Really is not having any chest discomfort but he feels a little more short of breath when he takes a deep breath in and out. He denies any diarrhea but it sounds as though his nausea and intermittent vomiting is causing some problems for him. Patient has not had the Covid vaccine. - Related Data Allergies Allergy/AdvReac Type Severity Reaction Status Date / Time No Known Allergies Allergy Verified 12/18/20 16:41 Home Meds: Home Meds Calcium Carbonate [Calcium] 600 mg PO DAILY 11/27/20 [History] Magnesium 250 mg PO DAILY 11/27/20 [History] Potassium Gluconate 99 mg PO DAILY 11/27/20 [History] Ondansetron [Zofran ODT] 4 mg PO Q6H PRN 12 Days #30 tab.dis 12/19/20 [Rx] Ondansetron [Ondansetron ODT] 4 mg PO Q6H PRN #15 tab.rapdis 04/22/21 [Rx] Past Medical History - Past Health History Medical/Surgical History: Denies Medical/Surgical History HEENT History: Reports: Hard of Hearing, Impaired Vision Other HEENT History: otitis externa, serous otitis medica, hearing aids, glasses Cardiovascular History: Reports: CAD, Other (See Below) Other Cardiovascular History: Left bundle branch block Respiratory History: Reports: None Gastrointestinal History: Reports: Bowel Obstruction Genitourinary History: Reports: None [employer]IR[employer] WORKER History: Reports: None Musculoskeletal History: Reports: Other (See Below) Other Musculoskeletal History: Back pain in the past. Neurological History: Reports: Other (See Below) Other Neuro History: Back pain after [place] Psychiatric History: Reports: None Endocrine/Metabolic History: Reports: None Hematologic History: Reports: None Immunologic History: Reports: None Oncologic (Cancer) History: Reports: None Dermatologic History: Reports: None - Infectious Disease History Infectious Disease History: Reports: Chicken Pox, Measles, Novel Coronavirus - Past Surgical History Head Surgeries/Procedures: Reports: None HEENT Surgical History: Reports: None Cardiovascular Surgical History: Reports: None Respiratory Surgical History: Reports: None GI Surgical History: Reports: Colonoscopy, EGD, Polypectomy, Other (See Below) Other GI Surgeries/Procedures: bowel resection in 2016 Male Surgical History: Reports: None Endocrine Surgical History: Reports: None Neurological Surgical History: Reports: Other (See Below) Other Neurological Surgeries/Procedures: Back pain after [place] Musculoskeletal Surgical History: Reports: Other (See Below) Other Musculoskeletal Surgeries/Procedures:: Ankle surgery 05/30/2019 Oncologic Surgical History: Reports: None Dermatological Surgical History: Reports: Other (See Below) Social & Family History - Family History GI: Reports: Diverticulitis, Diverticulosis Other GI Family History: both brother and nephew passed from GI issues. Musculoskeletal: Reports: Other (See Below) Other Musculoskeletal Family History: ataxia Neurological: Reports: Parkinson's Oncologic: Reports: Colon, Lung, Pancreatic - Tobacco Use Tobacco Use Status *Q: Never Tobacco User Second Hand Smoke Exposure: No - Caffeine Use Caffeine Use: Reports: None - Recreational Drug Use Recreational Drug Use: No ED ROS GENERAL - Review of Systems Review Of Systems: See Below Constitutional: Reports: Weakness, Fatigue HEENT: Reports: No Symptoms Respiratory: Denies: Shortness of Breath, Pleuritic Chest Pain Cardiovascular: Denies: Chest Pain Endocrine: Reports: Fatigue GI/Abdominal: Reports: Nausea, Vomiting. Denies: Abdominal Pain Musculoskeletal: Reports: Other (Generalized achiness) Skin: Reports: No Symptoms Neurological: Reports: Dizziness, Headache Psychiatric: Reports: No Symptoms Hematologic/Lymphatic: Reports: No Symptoms Immunologic: Reports: No Symptoms ED EXAM, GENERAL - Physical Exam Exam: See Below Exam Limited By: No Limitations General Appearance: Alert, No Apparent Distress Eye Exam: Bilateral Eye: Normal Inspection Ears: Normal External Exam, Normal Canal, Hearing Grossly Normal, Normal TMs, Other (Hearing aids removed for thorough exam minimal cerumen accumulation) Nose: Normal Inspection, Normal Mucosa, No Blood Throat/Mouth: Normal Inspection, Normal Lips, Normal Teeth, Normal Gums, Normal Oropharynx, Normal Voice, No Airway Compromise Head: Atraumatic, Normocephalic Neck: Normal Inspection, Supple, Non-Tender, Full Range of Motion. No: Lymphadenopathy (L), Lymphadenopathy (R) Respiratory/Chest: No Respiratory Distress, Crackles (He has a few crackles noted in both lung bases) Cardiovascular: Regular Rate, Rhythm, No Edema, No Murmur GI/Abdominal: Normal Bowel Sounds, Soft, Non-Tender Back Exam: Normal Inspection. No: CVA Tenderness (L), CVA Tenderness (R) Extremities: Normal Inspection, No Pedal Edema Neurological: Alert, Oriented, Normal Cognition Psychiatric: Normal Affect, Normal Mood Skin Exam: Warm, Dry, Intact Course - Vital Signs Last Recorded V/S: Last Vital Signs Temp 39.0 C H 04/22/21 17:15 Pulse 92 04/22/21 17:15 Resp 19 04/22/21 17:15 BP 152/79 H 04/22/21 17:15 Pulse Ox 94 L 04/22/21 17:15 - Orders/Labs/Meds Orders: Active Orders 24 hr Category Date Time Status Vital Signs [RC] Q15M Care 04/22/21 16:19 Active EPINEPHrine [Adrenalin] Med 04/22/21 16:19 Active 0.3 mg IM ASDIRECTED PRN Famotidine [Pepcid] Med 04/22/21 16:19 Active 20 mg IVPUSH ASDIRECTED PRN Lactated Ringers [Ringers, Lactated] 1,000 ml Med 04/22/21 12:30 Active IV ASDIRECTED Sodium Chloride 0.9% [Saline Flush] Med 04/22/21 16:30 Active 30 ml FLUSH ASDIRECTED diphenhydrAMINE [Benadryl] Med 04/22/21 16:19 Active 50 mg IVPUSH ASDIRECTED PRN methylPREDNISolone Sod Succ [Solu-MEDROL] Med 04/22/21 16:19 Active 125 mg IVPUSH ASDIRECTED PRN Medication Orders Diphenhydramine HCl (Diphenhydramine 50 Mg/Ml Sdv) 50 mg IVPUSH ASDIRECTED PRN PRN Reason: hypersensitivity reaction Epinephrine HCl (Epinephrine 1 Mg/Ml Sdv) 0.3 mg IM ASDIRECTED PRN PRN Reason: hypersensitivity reaction Famotidine (Famotidine 20 Mg/2 Ml Sdv) 20 mg IVPUSH ASDIRECTED PRN PRN Reason: hypersensitivity reaction Lactated Ringer's (Ringers, Lactated) 1,000 mls @ 125 mls/hr IV ASDIRECTED DEBORAH Last Admin: 04/22/21 13:00 Dose: 125 mls/hr Documented by: KARMA Methylprednisolone Sodium Succinate (Methylprednisolone Sodium Succinate 125 Mg/2 Ml Sdv) 125 mg IVPUSH ASDIRECTED PRN PRN Reason: hypersensitivity reaction Sodium Chloride (Sodium Chloride 0.9% 10 Ml Syringe) 30 ml FLUSH ASDIRECTED DEBORAH Labs: Laboratory Tests 04/22/21 04/22/21 04/22/21 Range/Units 12:40 12:40 12:40 WBC 3.82 L (4.23-9.07) K/mm3 RBC 5.30 (4.63-6.08) M/mm3 Hgb 15.4 (13.7-17.5) gm/dl Hct 45.9 (40.1-51.0) % MCV 86.6 (79.0-92.2) fl MCH 29.1 (25.7-32.2) pg MCHC 33.6 (32.2-35.5) g/dl RDW Std Deviation 41.0 (35.1-43.9) fL Plt Count 116 L D (163-337) K/mm3 MPV 11.8 (9.4-12.3) fl Neutrophils % (Manual) 71 H (40-60) % Band Neutrophils % 2 (0-10) % Lymphocytes % (Manual) 23 (20-40) % Atypical Lymphs % 0 % Monocytes % (Manual) 4 (2-10) % Eosinophils % (Manual) 0 L (0.8-7.0) % Basophils % (Manual) 0 L (0.2-1.2) Platelet Estimate Decreased Plt Morphology Comment See note RBC Morph Comment Normal PT 10.5 (9.7-12.0) SECONDS INR 0.94 D-Dimer, Quantitative (0.19-0.50) mg/L Sodium 136 (136-145) mEq/L Potassium 4.5 (3.5-5.1) mEq/L Chloride 101 (98-107) mEq/L Carbon Dioxide 22 (21-32) mEq/L Anion Gap 17.5 H (5-15) BUN 20 H (7-18) mg/dL Creatinine 1.3 (0.7-1.3) mg/dL Est Cr Clr Drug Dosing 49.85 mL/min Estimated GFR (MDRD) 54 (>60) mL/min BUN/Creatinine Ratio 15.4 (14-18) Glucose 103 H (70-99) mg/dL Calcium 8.0 L (8.5-10.1) mg/dL Total Bilirubin 0.8 (0.2-1.0) mg/dL AST 43 H (15-37) U/L ALT 41 (16-63) U/L Alkaline Phosphatase 60 (46-116) U/L Lactate Dehydrogenase 481 H (85-227) U/L C-Reactive Protein 5.7 H* (<1.0) mg/dL Total Protein 6.8 (6.4-8.2) g/dl Albumin 3.1 L (3.4-5.0) g/dl Globulin 3.7 gm/dL Albumin/Globulin Ratio 0.8 L (1-2) /14/ Range/Units 12:40 WBC (4.23-9.07) K/mm3 RBC (4.63-6.08) M/mm3 Hgb (13.7-17.5) gm/dl Hct (40.1-51.0) % MCV (79.0-92.2) fl MCH (25.7-32.2) pg MCHC (32.2-35.5) g/dl RDW Std Deviation (35.1-43.9) fL Plt Count (163-337) K/mm3 MPV (9.4-12.3) fl Neutrophils % (Manual) (40-60) % Band Neutrophils % (0-10) % Lymphocytes % (Manual) (20-40) % Atypical Lymphs % % Monocytes % (Manual) (2-10) % Eosinophils % (Manual) (0.8-7.0) % Basophils % (Manual) (0.2-1.2) Platelet Estimate Plt Morphology Comment RBC Morph Comment PT (9.7-12.0) SECONDS INR D-Dimer, Quantitative 1.01 H (0.19-0.50) mg/L Sodium (136-145) mEq/L Potassium (3.5-5.1) mEq/L Chloride (98-107) mEq/L Carbon Dioxide (21-32) mEq/L Anion Gap (5-15) BUN (7-18) mg/dL Creatinine (0.7-1.3) mg/dL Est Cr Clr Drug Dosing mL/min Estimated GFR (MDRD) (>60) mL/min BUN/Creatinine Ratio (14-18) Glucose (70-99) mg/dL Calcium (8.5-10.1) mg/dL Total Bilirubin (0.2-1.0) mg/dL AST (15-37) U/L ALT (16-63) U/L Alkaline Phosphatase (46-116) U/L Lactate Dehydrogenase (85-227) U/L C-Reactive Protein (<1.0) mg/dL Total Protein (6.4-8.2) g/dl Albumin (3.4-5.0) g/dl Globulin gm/dL Albumin/Globulin Ratio (1-2) Meds: Medications Generic Name Dose Route Start Last Admin Trade Name Freq PRN Reason Stop Dose Admin Diphenhydramine HCl 50 mg 04/22/21 16:19 Diphenhydramine 50 Mg/Ml Sdv IVPUSH ASDIRECTED PRN hypersensitivity reaction Epinephrine HCl 0.3 mg 04/22/21 16:19 Epinephrine 1 Mg/Ml Sdv IM ASDIRECTED PRN hypersensitivity reaction Famotidine 20 mg 04/22/21 16:19 Famotidine 20 Mg/2 Ml Sdv IVPUSH ASDIRECTED PRN hypersensitivity reaction Lactated Ringer's 1,000 mls @ 125 mls/hr 04/22/21 12:30 04/22/21 13:00 Ringers, Lactated IV 125 mls/hr ASDIRECTED DEBORAH Administration Methylprednisolone Sodium Succinate 125 mg 04/22/21 16:19 Methylprednisolone Sodium Succinate 125 Mg/2 Ml Sdv IVPUSH ASDIRECTED PRN hypersensitivity reaction Sodium Chloride 30 ml 04/22/21 16:30 Sodium Chloride 0.9% 10 Ml Syringe FLUSH ASDIRECTED DEBORAH Discontinued Medications Generic Name Dose Route Start Last Admin Trade Name Freq PRN Reason Stop Dose Admin Bamlanivimab 700 mg/ 160 mls @ 310 mls/hr 04/22/21 16:30 04/22/21 16:55 Etesevimab 1,400 mg/ Sodium IV 04/22/21 17:00 310 mls/hr Chloride ONETIME ONE Administration Ondansetron HCl 4 mg 04/22/21 12:30 04/22/21 12:28 Ondansetron 4 Mg/2 Ml Sdv IVPUSH 04/22/21 12:31 4 mg ONETIME ONE Administration Ondansetron HCl 4 mg 04/22/21 16:41 04/22/21 17:08 Ondansetron 4 Mg/2 Ml Sdv IVPUSH 04/22/21 16:42 4 mg ONETIME ONE Administration - Re-Assessments/Exams Free Text/Narrative Re-Assessment/Exam: 04/22/21 16:18 X-ray still pending labs are consistent with Covid at this point we discussed treatment options including Regeneron and the patient would like to give this a try. I spoke with the patient to provide information about bamlanivimab treatment. I offered them the Patient and Caregiver EUA REGEN-COV Fact Sheet to read and review. I stated the drug has been approved by an emergency use authorization (EUA} process and has not fully been FDA reviewed or approved. The patient meets the EUA requirements. I discussed there are other potential treatment options that are currently not FDA approved to treat COVID 19. Offered opportunity to ask questions and all questions were answered. The patient voiced understanding and agreed to proceed with treatment 04/22/21 18:46 Patient is doing okay he has completed his course of treatment we will discharge with some Zofran. Departure - Departure Time of Disposition: 18:46 Disposition: Home, Self-Care 01 Clinical Impression: COVID-19 - Discharge Information Referrals: Sahra Vázquez MD [Primary Care Provider] - Forms: ED Department Discharge Additional Instructions: Return to the emergency room with any questions problems or worsening symptoms. Drink plenty of fluids. I sent a prescription to the [place] [facility] in the [email or web address] [facility] for Zofran, this is an antinausea medication to keep fluids and food down. 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 Sepsis Event Note (ED) - Evaluation Sepsis Screening Result: No Definite Risk - Focused Exam Vital Signs: Vital Signs Temp Pulse Resp BP Pulse Ox 04/22/21 17:15 39.0 C H 92 19 152/79 H 94 L 04/22/21 14:30 37.5 C 88 18 139/72 94 L 04/22/21 10:35 36.9 C 88 18 142/82 H 95 - My Orders Last 24 Hours: My Active Orders 04/22/21 12:30 Lactated Ringers [Ringers, Lactated] 1,000 ml IV ASDIRECTED 04/22/21 16:19 Vital Signs [RC] Q15M EPINEPHrine [Adrenalin] 0.3 mg IM ASDIRECTED PRN Famotidine [Pepcid] 20 mg IVPUSH ASDIRECTED PRN diphenhydrAMINE [Benadryl] 50 mg IVPUSH ASDIRECTED PRN methylPREDNISolone Sod Succ [Solu-MEDROL] 125 mg IVPUSH ASDIRECTED PRN 04/22/21 16:30 Sodium Chloride 0.9% [Saline Flush] 30 ml FLUSH ASDIRECTED - Assessment/Plan Last 24 Hours: My Active Orders 04/22/21 12:30 Lactated Ringers [Ringers, Lactated] 1,000 ml IV ASDIRECTED 04/22/21 16:19 Vital Signs [RC] Q15M EPINEPHrine [Adrenalin] 0.3 mg IM ASDIRECTED PRN Famotidine [Pepcid] 20 mg IVPUSH ASDIRECTED PRN diphenhydrAMINE [Benadryl] 50 mg IVPUSH ASDIRECTED PRN methylPREDNISolone Sod Succ [Solu-MEDROL] 125 mg IVPUSH ASDIRECTED PRN 04/22/21 16:30 Sodium Chloride 0.9% [Saline Flush] 30 ml FLUSH ASDIRECTED
[2021-04-22] MEDS ORDERED: Lactated Ringers 1,000 ML IV SCH (12:30)
[2021-04-22] MEDS ORDERED: Ondansetron 4 MG/2 ML SDV IVPUSH ONE ×2 (12:30→16:41)
[2021-04-22] MEDS ORDERED: diphenhydrAMINE 50 MG/ML SDV IVPUSH PRN (16:19)
[2021-04-22] MEDS ORDERED: EPINEPHrine 1 MG/ML SDV IM PRN (16:19)
[2021-04-22] MEDS ORDERED: methylPREDNISolone Sodium Succinate 125 MG/2 ML SDV IVPUSH PRN (16:19)
[2021-04-22] MEDS ORDERED: Famotidine 20 MG/2 ML SDV IVPUSH PRN (16:19)
[2021-04-22] MEDS ORDERED: Bamlanivimab 700 MG, ETESEVIMAB 1,400 MG in Sodium Chloride 0.9% 100 ML IV ONE (16:30)
[2021-04-22] MEDS ORDERED: Sodium Chloride 0.9% 10 ML Syringe FLUSH SCH (16:30)
--- NOTE | 2021-04-22 16:42 | CR ---
Chest: Frontal view of the chest was obtained. Comparison: Prior chest x-ray of 12/18/20. Heart size and mediastinum are normal. Patchy increased density within the right upper and right lower lung are seen as well as the left lower lung. These findings are an interval change from prior chest x-ray. Bony structures show nothing acute. Impression: 1. Patchy areas of increased density within the chest most likely representing mild COVID pneumonia. Diagnostic code #3
[2021-04-22 19:15] VITALS: BP 149/79; PULSE 79
== END 2021-04-22 19:12 | disposition home or self-care (01) ==
LOC: JD.ED 09:24
DX: U07.1 COVID-19 (principal); I25.10 Atherosclerotic heart disease of native coronary artery without angina pectoris
CPT/HCPCS: 36415; 71045; 71045-26; 80053; 83615; 85007; 85027; 85379; 85610; 86140; 93005; 96374; 96376; 99285-25; J2405; J7120; M0245; Q0245

== ENCOUNTER 2024-02-24 12:10 | Emergency (ER) | payer OTHER ==
[2024-02-24] MEDS: Ibuprofen 600 MG Tab PO ONE (13:04)
[2024-02-24 14:04] VITALS: BP 146/74; PULSE 85
== END 2024-02-24 13:35 | disposition home or self-care (01) ==
LOC: JD.ED 12:10
DX: S16.1XXA Strain of muscle, fascia and tendon at neck level, initial encounter (principal); S00.03XA Contusion of scalp, initial encounter; I25.10 Atherosclerotic heart disease of native coronary artery without angina pectoris; Z86.16 Personal history of COVID-19; Z79.899 Other long term (current) drug therapy; W01.198A Fall on same level from slipping, tripping and stumbling with subsequent striking against other object, initial encounter; Y92.002 Bathroom of unspecified non-institutional (private) residence as the place of occurrence of the external cause
CPT/HCPCS: 70450; 72125; 99283; A9270